=== PATIENT | male | born 1940 | race Caucasian/White ===

== ENCOUNTER → 2018-02-16 07:58 | Outpatient (CLI) | payer MEDICARE, OTHER, SELFPAY ==
--- NOTE | 2018-02-16 15:57 | PFTCOMP_ITS ---
COMPLETE PULMONARY FUNCTION TEST INTERPRETATION Brief HPI: Patient is a 77 year old male, currently under the care of Dr. Caballero, who presents to [facility] for complete pulmonary function tests secondary to diagnosis of COPD. Respiratory therapist reports good effort and reproducible results. Interpretation: Forced expiration spirometry shows a mild large airways obstructive ventilatory defect with an FEV1 of 84% predicted. There is a significant bronchodilator response in FEV1 by strict ATS criteria. Spirograms are of good quality and plateau slowly, indicating slowly emptying areas of the lungs. The respiratory flow volume loop shows decreased expiratory flow rates at all lung volumes consistent with airway obstruction. Lung volumes by body plethysmography show an elevated total lung capacity at 8.38 L, 130% predicted. All other lung volumes are within normal limits. Diffusion capacity by carbon monoxide is elevated at 121% predicted. The airway resistance is normal. Compared to previous pulmonary function tests from 05/14/2016, there has been a significant worsening in air trapping. Impression: Partially reversible mild large airways obstructive ventilatory defect with preserved diffusion capacity.
--- OUTSIDE RECORDS SUMMARY | 2018-03-30 20:28 | XMS RPT_ITS | Clinical Summary ---
:1940 Author Organization Pulmonary Medicine [facility] Address [address] [place] [address] Phone Care Team Providers Name Role Phone Corry Garner LPN Unavailable Unavailable Conditions or Problems Problem Name Problem Code Onset Status Entry Provider Comment Standard Annotate Date Date Description COPD 18533213 Active Jesús Lott Chronic (SNOMED CT) / Brown DO obstructive lung disease Pleuritic 7597467 Active Jesús Lott Pleuritic chest pain (SNOMED CT) / Brown DO pain Pulmonary 660261363 Active Jesús Lott Solitary nodule (SNOMED CT) / Brown DO nodule of lung Medications Medication Instructions Start Stop Generic Name NDC Provider Date Date SPIRIVA inh one cap once TIOTROPIUM [id number] Corry L HANDIHALER 18 daily. Use with 3 BROMIDE [place] MCG CAPS handihaler MONOHYDRATE SPIRIVA inh one cap once / TIOTROPIUM [id number] Marisel A HANDIHALER 18 daily. Use with 3 11 BROMIDE Yensho COUNTRY MANAGER MCG CAPS handihaler MONOHYDRATE SYMBICORT inhale two puffs BUDESONIDE-FORM 07615235664 Corry L 160-4.5 twice daily 3 OTEROL FUMARATE York MCG/ACT AERO MUCINEX 600 MG one tab twice GUAIFENESIN 11141321918 Corry L [id number] daily as needed 3 York for cold/allergy PROAIR HFA 108 inh two puffs ALBUTEROL 47936456312 Corry L (90 Base) every four hours 3 SULFATE [place] MCG/ACT AERS as needed EXCEDRIN EXTRA as needed ASPIRIN-ACETAMI 88856398630 Corry L STRENGTH TABS 3 NOPHEN-CAFFEINE York TABS Medications Administered No information available. Allergies, Adverse Reactions, Alerts Observed no known allergies at Results Date Name Value Unit Range Flag Description Lab Report: CREATININE FINGERSTICK ZZ-GE-unk > 60.0000 mL/min >60 GE use only - for [employer] import when terms are not otherwise specified Office Visit: COPD and pulmonary nodule MEDS REVIEW Done Documentation of current medications (procedure) SMOK STATUS Never smoker Tobacco use [facility] ORALTOBACUSE Never Tobacco smoking status [facility] Plan of Care Type Date Detail Appointment 08:30 AM Jesús Caballero DO, [address], [address], [place], [address] Pending order DMB Pending order Follow Up Appt 1 year Pending order Pulmonary Function Test - complete Pending order DMB Pending order Follow Up Appt [address] Chest with Contrast Pending order DMB Pending order Follow Up Appt [address] Chest without contrast Pending order Pulmonary Function Test - complete Procedures Code Procedure Name Date Entry Date F/U DMB DMB FUA 3 months Follow Up Appt 3 months CPT-28668 CT Chest with Contrast F/U DMB DMB FUA 6 months Follow Up Appt 6 months CPT-50899 CT Chest without contrast PFT Pulmonary Function Test - complete Vital Signs Date Name Value Unit Description BMI (Body Mass Index) 23.34 kg/m2 Body Mass Index [Ratio] Body Temperature 97.2 [degF] temperature E&M BP Diastolic 80 mm[Hg] blood pressure, diastolic - 8462-4 BP Systolic 135 mm[Hg] blood pressure, systolic - 8480-6 Heart Rate 64 /min pulse rate E&M - 8867-4 Height 70.5 [in_us] height E&M - 8302-2 Respiratory Rate 18 /min respiratory rate E&M - 9279-1 Weight Measured 165 [lb_av] weight E&M - 3141-9 Body Temperature 36.6 Jennifer temperature in centigrade E&M BSA (Body Surface Area) 1.97 body surface area Height 179.07 cm height in centimeters E&M Weight Measured 78.18 kg weight in kilograms E&M
--- OUTSIDE RECORDS SUMMARY | 2018-03-30 20:28 | XMS RPT_ITS | Clinical Summary ---
:1940 Author Organization Pulmonary Medicine [facility] Address [address] [place] [address] Phone Care Team Providers Name Role Phone Corry Garner LPN Unavailable Unavailable Conditions or Problems Problem Name Problem Code Onset Status Entry Provider Comment Standard Annotate Date Date Description COPD 28654153 Active Jesús Lott Chronic (SNOMED CT) / Brown DO obstructive lung disease Pleuritic 7229272 Active Jesús Lott Pleuritic chest pain (SNOMED CT) / Brown DO pain Pulmonary 985190635 Active Jesús Lott Solitary nodule (SNOMED CT) / Brown DO nodule of lung Medications Medication Instructions Start Stop Generic Name NDC Provider Date Date SPIRIVA inh one cap once TIOTROPIUM [id number] Corry L HANDIHALER 18 daily. Use with 3 BROMIDE [place] MCG CAPS handihaler MONOHYDRATE SPIRIVA inh one cap once / TIOTROPIUM 65230184492 Marisel A HANDIHALER 18 daily. Use with 3 11 BROMIDE Yensho FOOD OR BAGGAGE HANDLING RAMPMAN MCG CAPS handihaler MONOHYDRATE SYMBICORT inhale two puffs BUDESONIDE-FORM 62342033515 Corry L 160-4.5 twice daily 3 OTEROL FUMARATE [place] MCG/ACT AERO MUCINEX 600 MG one tab twice GUAIFENESIN 30355171727 Corry L [id number] daily as needed 3 [place] for cold/allergy PROAIR HFA 108 inh two puffs ALBUTEROL 21163202193 Corry L (90 Base) every four hours 3 SULFATE [place] MCG/ACT AERS as needed EXCEDRIN EXTRA as needed ASPIRIN-ACETAMI 10768152100 Corry L STRENGTH TABS 3 NOPHEN-CAFFEINE [place] TABS Medications Administered No information available. Allergies, Adverse Reactions, Alerts Observed no known allergies at Results Date Name Value Unit Range Flag Description Office Visit: pulmonary nodule & pleuritic chest pain MEDS REVIEW Done Documentation of current medications (procedure) ORALTOBACUSE Never Tobacco smoking status NHIS SMOK STATUS Never smoker Tobacco use [facility] Plan of Care Type Date Detail Appointment 07:30 AM Jesús Caballero DO, [address], [address], [place], [address] Pending order DMB Pending order Follow Up Appt [address] Chest with Contrast Pending order DMB Pending order Follow Up Appt [address] Chest without contrast Pending order Pulmonary Function Test - complete Procedures No information available. Vital Signs Date Name Value Unit Description BMI (Body Mass Index) 23.20 kg/m2 Body Mass Index [Ratio] Body Temperature 97.5 [degF] temperature E&M BP Diastolic 83 mm[Hg] blood pressure, diastolic - 8462-4 BP Systolic 150 mm[Hg] blood pressure, systolic - 8480-6 Heart Rate 50 /min pulse rate E&M - 8867-4 Height 70.5 [in_us] height E&M - 8302-2 Respiratory Rate 18 /min respiratory rate E&M - 9279-1 Weight Measured 164 [lb_av] weight E&M - 3141-9 Body Temperature 36.6 Jennifer temperature in centigrade E&M BSA (Body Surface Area) 1.97 body surface area Height 179.07 cm height in centimeters E&M Weight Measured 78.18 kg weight in kilograms E&M
--- OUTSIDE RECORDS SUMMARY | 2018-03-30 20:28 | XMS RPT_ITS | Clinical Summary ---
:1940 Author Organization Pulmonary Medicine [facility] Address [address] [place] [address] Phone Care Team Providers Name Role Phone Mariangel Carrera Oren Unavailable Unavailable Conditions or Problems Problem Name Problem Code Onset Status Entry Provider Comment Standard Annotate Date Date Description COPD 14546059 Active Jesús Oren Chronic (SNOMED CT) / Brown DO obstructive lung disease Pleuritic 2081236 Active Jesús Lott Pleuritic chest pain (SNOMED CT) / Brown DO pain Pulmonary 195400263 Active Jesús Oren Solitary nodule (SNOMED CT) / Brown DO nodule of lung Medications Medication Instructions Start Stop Generic Name NDC Provider Date Date SPIRIVA inh one cap once TIOTROPIUM 46319887508 Corry L HANDIHALER 18 daily. Use with 3 BROMIDE [place] MCG CAPS handihaler MONOHYDRATE SPIRIVA inh one cap once / TIOTROPIUM 44479574160 Marisel A HANDIHALER 18 daily. Use with 3 11 BROMIDE Yensho TERRAZZO WORKER HELPER MCG CAPS handihaler MONOHYDRATE SYMBICORT inhale two puffs BUDESONIDE-FORM 75880452109 Corry L 160-4.5 twice daily 3 OTEROL FUMARATE [place] MCG/ACT AERO MUCINEX 600 MG one tab twice GUAIFENESIN 44542194162 Corry L [id number] daily as needed 3 [place] for cold/allergy PROAIR HFA 108 inh two puffs ALBUTEROL 93678761331 Corry L (90 Base) every four hours 3 SULFATE [place] MCG/ACT AERS as needed EXCEDRIN EXTRA as needed ASPIRIN-ACETAMI 45058307942 Corry L STRENGTH TABS 3 NOPHEN-CAFFEINE York [...] (procedure) SMOK STATUS Never smoker Tobacco use [facility] ORALTOBACUSE Never Tobacco smoking status [facility] Plan of Care Type Date Detail Appointment 08:30 AM Jesús Caballero DO, [address], [address], [place], [address] Pending order DMB Pending order Follow Up [...] 3 months Follow Up Appt 3 months CPT-78026 CT Chest with Contrast F/U DMB DMB FUA 6 months Follow Up Appt 6 months CPT-92193 CT Chest without contrast PFT Pulmonary Function [...]
--- OUTSIDE RECORDS SUMMARY | 2018-03-30 20:28 | XMS RPT_ITS | Clinical Summary ---
:1940 Author Organization Pulmonary Medicine [facility] Address [address] [place] [address] Phone Care Team Providers Name Role Phone Corry Garner LPN Unavailable Unavailable Conditions or Problems Problem Name Problem Code Onset Status Entry Provider Comment Standard Annotate Date Date Description COPD 67568304 Active Jesús Lott Chronic (SNOMED CT) / Brown DO obstructive lung disease Pleuritic 6836861 Active Jesús Lott Pleuritic chest pain (SNOMED CT) / Brown DO pain Pulmonary 642414105 Active Jesús Lott Solitary nodule (SNOMED CT) / Brown DO nodule of lung Medications Medication Instructions Start Stop Generic Name NDC Provider Date Date SPIRIVA inh one cap once TIOTROPIUM 24572273508 Corry L HANDIHALER 18 daily. Use with 3 BROMIDE [place] MCG CAPS handihaler MONOHYDRATE SPIRIVA inh one cap once / TIOTROPIUM 41196043928 Marisel A HANDIHALER 18 daily. Use with 3 11 BROMIDE Yensho WILDLIFE ECOLOGIST MCG CAPS handihaler MONOHYDRATE SYMBICORT inhale two puffs BUDESONIDE-FORM 10695122900 Corry L 160-4.5 twice daily 3 OTEROL FUMARATE [place] MCG/ACT AERO MUCINEX 600 MG one tab twice GUAIFENESIN 20870226060 Corry L [id number] daily as needed 3 [place] for cold/allergy PROAIR HFA 108 inh two puffs ALBUTEROL 62229462042 Corry L (90 Base) every four hours 3 SULFATE [place] MCG/ACT AERS as needed EXCEDRIN EXTRA as needed ASPIRIN-ACETAMI 27544680864 Corry L STRENGTH TABS 3 NOPHEN-CAFFEINE [place] TABS Medications Administered No information available. Allergies, Adverse Reactions, Alerts Observed no known allergies at Results Date Name Value Unit Range Flag Description Office Visit: pulmonary nodule & pleuritic chest pain MEDS REVIEW Done Documentation of current medications (procedure) ORALTOBACUSE Never Tobacco smoking status NHIS SMOK STATUS Never smoker Tobacco use [facility] Plan of Care Type Date Detail Appointment 07:30 AM Jesús Caballero DO, [address], [address], [place], [address] Pending order DMB Pending order Follow Up [...]
--- OUTSIDE RECORDS SUMMARY | 2018-03-30 20:28 | XMS RPT_ITS | Clinical Summary ---
:1940 Author Organization Pulmonary Medicine [facility] Address [address] [place] [address] Phone Care Team Providers Name Role Phone Corry Garner LPN Unavailable Unavailable Conditions or Problems Problem Name Problem Code Onset Status Entry Provider Comment Standard Annotate Date Date Description COPD 01679692 Active Jesús Lott Chronic (SNOMED CT) / Brown DO obstructive lung disease Pleuritic 0411216 Active Jesús Lott Pleuritic chest pain (SNOMED CT) / Brown DO pain Pulmonary 810796455 Active Jesús Lott Solitary nodule (SNOMED CT) / Brown DO nodule of lung Medications Medication Instructions Start Stop Generic Name NDC Provider Date Date SPIRIVA inh one cap once TIOTROPIUM 32464895632 Corry L HANDIHALER 18 daily. Use with 3 BROMIDE [place] MCG CAPS handihaler MONOHYDRATE SPIRIVA inh one cap once / TIOTROPIUM 28588634869 Marisel A HANDIHALER 18 daily. Use with 3 11 BROMIDE Yensho FUEL PILOT ENGINEER MCG CAPS handihaler MONOHYDRATE SYMBICORT inhale two puffs BUDESONIDE-FORM 23469905839 Corry L 160-4.5 twice daily 3 OTEROL FUMARATE [place] MCG/ACT AERO MUCINEX 600 MG one tab twice GUAIFENESIN 05549123097 Corry L [id number] daily as needed 3 [place] for cold/allergy PROAIR HFA 108 inh two puffs ALBUTEROL 06231264775 Corry L (90 Base) every four hours 3 SULFATE [place] MCG/ACT AERS as needed EXCEDRIN EXTRA as needed ASPIRIN-ACETAMI 01364112265 Corry L STRENGTH TABS 3 NOPHEN-CAFFEINE York [...] use [facility] ORALTOBACUSE Never Tobacco smoking status [facility] Plan of Care Type Date Detail Pending order DMB Pending order Follow Up [...] 3 months Follow Up Appt 3 months CPT-22259 CT Chest with Contrast F/U DMB DMB FUA 6 months Follow Up Appt 6 months CPT-47250 CT Chest without contrast PFT Pulmonary Function [...]
--- OUTSIDE RECORDS SUMMARY | 2018-03-30 20:29 | XMS RPT_ITS ---
:1940 Author Organization OH[facility] Care Team Providers Name Role Phone LACEY CASANOVA (AMARILIS) Attending Unavailable LACEY CASANOVA (AMARILIS) Referring Unavailable ELZA CARPIO Referring Unavailable ELZA CARPIO Attending Unavailable Gen Tom Attending Unavailable Jesús Caballero D.O. Referring Unavailable Jesús Caballero D.O. Attending Unavailable Naveen Alvarado Primary Care Unavailable Jesús Caballero D.O. Referring Unavailable PROBLEMS PROBLEMS DATE TYPE CONDITION / CODE ATTENDING STATUS SOURCE 03/05/2018 Unknown J44.9 - Chronic Gen Tom Active [facility] obstructive [facility] disease, Repository unspecified / J44.9(ICD-10) 12/08/2016 Active Aneurysm of iliac NA Active [facility] artery / [facility] I72.3(ICD-10) Repository 09/09/2017 Active Frequency of NA Active [facility] micturition / [facility] [place] R35.0(ICD-10) Repository 09/09/2017 Active Encounter for NA Active [facility] screening for [facility] malignant Repository neoplasm of prostate / Z12.5(ICD-10) 09/09/2017 Active Encounter for NA Active [facility] screening for [facility] lipoid disorders Repository / Z13.220(ICD-10) 09/09/2017 Active Encounter for NA Active [facility] screening for [facility] diabetes mellitus Repository / Z13.1(ICD-10) PROCEDURES PROCEDURES No Procedure Records FoundRESULTS RESULTS PULMONARY FUNCTION Observed: 02/17/2018 Status: F Source: [facility] REPORT COMP 5:47 AM [facility] REPOSITORY [facility] Pulmonary Services/Neurology [address] [place] [address] MR#: [id number] Acct: [id number] Name: LUIS RACHEL Rep #: [id number] : 1940 77 From: Gen Tom MD Referring Dr: Jesús Caballero D.O. Status: REG CLI Ordering Dr: Date: Location: [facility] Sex: M C COMPLETE PULMONARY FUNCTION TEST INTERPRETATION Brief HPI: Patient is a 77 year old male, currently under the care of Dr. Caballero, who presents to [facility] for complete pulmonary function tests secondary to diagnosis of COPD. Respiratory therapist reports good effort and reproducible results. Interpretation: Forced expiration spirometry shows a mild large airways obstructive ventilatory defect with an FEV1 of 84% predicted. There is a significant bronchodilator response in FEV1 by strict ATS criteria. Spirograms are of good quality and plateau slowly, indicating slowly emptying areas of the lungs. The respiratory flow volume loop shows decreased expiratory flow rates at all lung volumes consistent with airway obstruction. Lung volumes by body plethysmography show an elevated total lung capacity at 8.38 L, 130% predicted. All other lung volumes are within normal limits. Diffusion capacity by carbon monoxide is elevated at 121% predicted. The airway resistance is normal. Compared to previous pulmonary function tests from 05/14/2016, there has been a significant worsening in air trapping. Impression: Partially reversible mild large airways obstructive ventilatory defect with preserved diffusion capacity. 02/17/18 0547 <Electronically signed by Gen Tom MD> Date Gen Tom MD CC: Gen Tom MD; Jesús Caballero D.O.; Naveen Alvarado MD Date Dictated: 02/16/18 1555 Date Transcribed: 02/16/18 1555 [employer]: KEILY Signed PROGRESS Observed: 12/07/2017 Status: COMPLETED Source: [place] 11:52 AM [facility] REPOSITORY HNO ID: [id number] Author: Elza Carpio Service: (none) Author Type: Physician Type: Progress Notes Filed: 12/07/2017 11:52 AM Note Text: This office note has been dictated. Elza Carpio DO CNOV Observed: 12/07/2017 Status: COMPLETED Source: [place] 11:15 AM [facility] REPOSITORY Office Visit (VASSWS) LUIS RACHEL ([id number]) 1940 M NFR Date Time Provider Department 12/07/17 11:15 AM ELZA CARPIO VASSWS During your visit today, we recorded the following information about you: Elza Carpio DO 12/07/2017 11:52 AM Signed This office note has been dictated. 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 Rachel is here to follow up on common iliac artery aneurysm, ectatic blood vessels. Denies any complaints. Still having left groin, slight lateral pelvic pain at the ASIS. He says he feels a tightening and sometimes a burning pain when he sits. He has a history of a hernia repair years before. 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 Objective: His vital signs are stable. He is in no distress. He has palpable nontender aorta. His aortic duplex demonstrates he has a right common iliac artery ectasia at 1.7, left common iliac artery at 2.1 cm. This is stable from a CT scan prior. Assessment/Plan: Common iliac artery aneurysm and ectasia. We will get a repeat duplex in six months. If that remains stable, we will go to yearly duplexes. He is agreeable to this plan. If he continues to have significant groin pain, especially at that location, he may benefit from evaluation by General Surgery to assess his hernia repair. He will follow up with me in six months. Elza Carpio D.O. KB/089 Audio #: [id number] Date Dictated: 12/07/2017 11:05:20 Date Typed: 12/13/2017 09:43:23 Date Revised: COMP METABOLIC PANEL Collected: 09/09/2017 Status: F Source: [place] 8:10 AM [facility] REPOSITORY TYPE CODE TESTS RESULT OUT OF REFERENCE UNITS RANGE LAB TP 6.3-8.0 g/dL Protein, Total 6.6 LAB ALB 3.9-4.9 g/dL Albumin 4.2 LAB CA 8.5-10.2 mg/dL Calcium, Total 9.1 LAB TBIL 0.2-1.3 mg/dL Bilirubin, Total 0.9 LAB ALKP 36-108 U/L Alkaline Phosphatase 62 LAB AST 14-40 U/L AST 28 LAB GLU 74-99 mg/dL Glucose 91 Result Comment: The [place] Diabetes Association (ADA) provides guidance for cutoff values for fasting glucose and random glucose. The ADA defines fasting as no caloric intake for at least 8 hours. Fas ting plasma glucose results between 100 to 125 mg/dL indicate increased risk for diabetes (prediabetes). Fasting plasma glucose results greater than or equal to 126 mg/dL meet the criteria for diagnosis of diabetes. In the absence of unequivocal hyperglycemia, results should be confirmed by repeat testing. In a patient with classic symptoms of hyperglycemia or hyperglycemic crisis, random plasma glucose results greater than or equal to 200 mg/dL meet the criteria for diagnosis of diabetes. Reference: Standards of Medical Care in Diabetes 2016, [place] [employer] Association. Diabetes Care. 2016.39(Suppl 1). LAB BUN 9-24 mg/dL BUN 23 LAB CRET 0.73-1.22 mg/dL Creatinine 0.83 LAB NA 136-144 mmol/L Sodium 142 LAB K 3.7-5.1 mmol/L Potassium 4.2 LAB CL 97-105 mmol/L Chloride 105 LAB CO2 22-30 mmol/L CO2 28 LAB AGAP 9-18 mmol/L Anion Gap 9 LAB ALT 10-54 U/L ALT 20 LAB GFRAA eGFR- Amer. >60 LAB GFRNAA . eGFR-All Other Races >60 Result Comment: eGFR (Estimated GFR) Units of measure: mL/min/1.73 meters squared eGFR is derived from the reexpressed MDRD Study equation using the following parameters: serum creatinine, age, gender and race. The creatinine assay has been calibrated to be traceable to IDMS. An eGFR <60 mL/min/1.73m2 for >3 months is consistent with chronic kidney disease. Refer to KDOQI guidelines for clinical interpretation. In patients with unstable renal function, e.g. those with acute kidney injury, the eGFR may not accurately reflect actual GFR. Performed By: #### CMP, LIPB, PSA #### [facility] [address] [place], [place] [address] LIPID PANEL, BASIC Collected: 09/09/2017 Status: F Source: [place] 8:10 AM [facility] REPOSITORY TYPE CODE TESTS RESULT OUT OF REFERENCE UNITS RANGE LAB CHOL <200 mg/dL Cholesterol 157 Result Comment: <200 mg/dL, Desirable 200-239 mg/dL, Borderline high >239 mg/dL, High LAB TRIGLY <150 mg/dL Triglyceride 52 Result Comment: <150 mg/dL, Normal 150-199 mg/dL, Borderline high 200-499 mg/dL, High >499 mg/dL, Very high LAB HDL >39 mg/dL HDL-Cholesterol 71 Result Comment: 40-59 mg/dL, Acceptable >59 mg/dL, High: Negative risk factor for coronary heart disease <40 mg/dL, Low: Positive risk factor for coronary heart disease LAB LDL <100 mg/dL LDL-Cholesterol 76 Result Comment: <100 mg/dL, Optimal 100-129 mg/dL, Near optimal/above optimal 130-159 mg/dL, Borderline high 160-189 mg/dL, High >189 mg/dL, Very high Secondary prevention optimal LDL Cholesterol levels are recommended to be < 70 mg/dL LAB NONHDL <130 mg/dL Non HDL Cholesterol 86 Result Comment: <130 mg/dL, Optimal 130-159 mg/dL, Near optimal/above optimal 160-189 mg/dL, Borderline high 190-219 mg/dL, High >219 mg/dL, Very high Secondary prevention optimal non HDL Cholesterol levels are recommended to be < 100 mg/dL LAB FT hrs Fasting Time 8 LAB VLDL <30 mg/dL VLDL Cholesterol 10 LAB TCHDL <5.10 TC:HDL Ratio 2.21 LAB LDLHDL <2.54 LDL:HDL Ratio 1.07 Result Comment: Reference: 1. National Cholesterol Education Program ATP III Guideline At-A-Glance Quick Desk Reference: National Heart, Lung, and Blood Allen. National Institutes of Health. 2001: NIH Publication No. 01-3305. 2. An International Atherosclerosis Society position paper: global recommendations for the management of dyslipidemia: executive summary, Atherosclerosis. 2014: 232(2):410-413. Performed By: #### CMP, LIPB, PSA #### [facility] [employer] [address] [place], [place] [address] PSA, DIAGNOSTIC Collected: 09/09/2017 Status: F Source: [place] 8:10 AM [facility] REPOSITORY TYPE CODE TESTS RESULT OUT OF REFERENCE UNITS RANGE LAB PSA 0.00-2.59 ng/mL PSA, Diagnostic 1.79 Result Comment: Total PSA test methodology used is the Electrochemiluminescence Immunoassay. Performed By: #### CMP, LIPB, PSA #### [facility] [employer] [address] [place], [place] [address] PROGRESS Observed: 09/03/2017 Status: COMPLETED Source: [place] 11:13 AM [facility] REPOSITORY HNO ID: [id number] Author: Lacey Casanova Service: (none) Author Type: Nurse Practitioner Type: Progress Notes Filed: 09/03/2017 12:46 PM Note Text: This is a 76 year old male who presents today with: Patient presents with: Blood Pressure HISTORY OF PRESENT ILLNESS: Luis Rachel is a 76 year old male. Patient presents with: Blood Pressure Pt presents today for blood pressure problem. Refers that yesterday 158/83 at the foot/ankle doctor yesterday. Recheck BP: Right - 130/82 Left - 122/84 REVIEW OF SYSTEMS GENERAL: No weight loss, malaise or fevers/chills HEENT: Negative for frequent or significant headaches, No changes in hearing or vision. NECK: Negative for lumps, goiter, pain and significant neck swelling RESPIRATORY: Negative for cough, hemoptysis, wheezing, dyspnea. Gets increased SOB with the increased humidity or if doing something pretty strenuous. Hasn't used inhaler since its been cold. CARDIOVASCULAR: Negative for chest pain, leg swelling, orthopnea, or palpitations GI: No nausea, vomiting, or diarrhea/constipation. No hematochezia/melena. No heartburn or reflux symptoms. Up to date with colonoscopy. : No history of dysuria, frequency or incontinence. No nocturia. MUSCULOSKELETAL: Negative for joint pain or swelling. SKIN: Negative for lesions, rash, and itching ENDOCRINE: Negative for heat intolerance, polyuria, polydipsia and goiter. Increased urination during the day. Doesn't like the cold. NEURO: No history syncope, paralysis, seizures or tremors. Occ headaches that usually are secondary to neck pain (pillow position, sitting in recliner). PAST MEDICAL HISTORY: PAST MEDICAL HISTORY Diagnosis Date - Anal or rectal pain - Asthma - Diverticulosis of small intestine (without mention of hemorrhage) - External hemorrhoids without mention of complication - Generalized osteoarthrosis, unspecified site lumbar spine - Internal hemorrhoids without mention of complication PAST SURGICAL HISTORY Procedure Laterality Date - COLONOSCOP W/ OR W/O [facility] SPEC 11/02/2014 Colonoscopy - COLONOSCOPY - DIAGNOSTIC 07/19/04 - [facility] REVISION, ONE TOE Bilateral feet - REPAIR INGUINAL HERNIA 04/30/2010 bilateral ALLERGIES Patient has no known allergies. MEDICATIONS Current Outpatient Prescriptions: SYMBICORT 160-4.5 mcg/actuation inhaler Inhale 2 Puffs as instructed twice daily. No current facility-administered medications for this visit. FAMILY HISTORY Problem Relation Age of Onset - Cancer Mother - CVA [Other] [OTHER] Mother - Heart Father Social History Marital status: Spouse name: Years of education: Number of children: Social History Main Topics Smoking status: Never Smoker Smokeless tobacco: Never Used Alcohol use: Yes Comment: social drinker Drug use: No EXAM: BP 140/80 (BP Site: Right Arm, BP Position: Sitting, BP Cuff Size: Regular Adult) Pulse 62 Resp 12 Ht 177.8 cm (5' 10) Wt 77.1 kg (170 lb) BMI 24.39 kg/m? PHYSICAL EXAM: General Appearance: Well appearing, alert, in no acute distress, well-hydrated, well nourished.. Skin: Skin color, texture, turgor normal, no suspicious rashes or lesions. Head: Normocephalic, no masses, lesions, tenderness or abnormalities. Eyes: Anicteric sclera. Pupils are equally round and reactive to light. Extraocular movements are intact. . Ears: External ears normal, canals clear. Normal TMs bilaterally. Oropharynx: Lips, mucosa, and tongue normal, teeth and gums normal, oropharynx normal. Neck: Supple, no adenopathy; thyroid symmetric, normal size, no bruits. Lungs: Lungs clear to auscultation. No wheezing, rhonchi, rales. Heart: RRR without murmur, gallop, or rubs. No ectopy, Positive findings: murmur: 1/6 at apex. Abdomen: Abdomen soft, non-tender. Bowel sounds normal. No masses, organomegaly, Negative findings: no bruits heard and aorta normal. Extremities: No deformities, edema, skin discoloration, clubbing or cyanosis. Good capillary refill. . Peripheral Pulses: Normal. Neurologic: Gait normal. ASSESSMENT/PLAN: 1. Elevated blood pressure reading without diagnosis of hypertension - ICD9: 796.2, ICD10: R03.0 (primary diagnosis) BP after sitting normalized. Will return in a week or so for fasting labs and nurse BP check. Discussed watching sodium and hidden salts. - Encouraged dietary sodium restriction/DASH diet - Recommend home blood pressure monitoring, to bring results in on next visit. 2. Chronic obstructive pulmonary disease, unspecified COPD type (HCC) - ICD9: 496, ICD10: J44.9 Stable. Hasn't needed inhaler since cold weather. 3. 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 4. Frequency of micturtion - ICD9: 788.41, ICD10: R35.0 chronic - PSA/PROSTSPECAG DIAG 5. Screening for cholesterol level - ICD9: V77.91, ICD10: Z13.220 - LIPID PANEL BASIC 6. Screening for prostate cancer - ICD9: V76.44, ICD10: Z12.5 - PSA/PROSTSPECAG DIAG 7. Screening for diabetes mellitus - ICD9: V77.1, ICD10: Z13.1 - COMP METABOLIC PANEL Discussed treatment plan and patient voices understanding. Patient's questions answered appropriately. Medications and potential side effects were discussed and patient voices understanding. Return to the office as scheduled or as needed for worsening/no improvement. Lacey Casanova APRN.CNP CNOV Observed: 09/03/2017 Status: COMPLETED Source: [place] 10:40 AM [facility] REPOSITORY Office Visit (FAMPWS) LUIS RACHEL ([id number]) 1940 M NFR Date Time Provider Department 09/03/17 10:40 AM LACEY CASANOVA (AMARILIS) FAMPWS During your visit today, we recorded the following information about you: Pulse Respiration Blood pressure Weight 62/minute 12/minute 140/80 77.1 kg Height 1.778 m Lacey Casanova APRN.CNP 09/03/2017 12:46 PM Signed This is a 76 year old male who presents today with: Patient presents with: Blood Pressure HISTORY OF PRESENT ILLNESS: Luis A Kovalik is a 76 year old male. Patient presents with: Blood Pressure Pt presents today for blood pressure problem. Refers that yesterday 158/83 at the foot/ankle doctor yesterday. Recheck BP: Right - 130/82 Left - 122/84 REVIEW OF SYSTEMS GENERAL: No weight loss, malaise or fevers/chills HEENT: Negative for frequent or significant headaches, No changes in hearing or vision. NECK: Negative for lumps, goiter, pain and significant neck swelling RESPIRATORY: Negative for cough, hemoptysis, wheezing, dyspnea. Gets increased SOB with the increased humidity or if doing something pretty strenuous. Hasn't used inhaler since its been cold. CARDIOVASCULAR: Negative for chest pain, leg swelling, orthopnea, or palpitations GI: No nausea, vomiting, or diarrhea/constipation. No hematochezia/melena. No heartburn or reflux symptoms. Up to date with colonoscopy. : No history of dysuria, frequency or incontinence. No nocturia. MUSCULOSKELETAL: Negative for joint pain or swelling. SKIN: Negative for lesions, rash, and itching ENDOCRINE: Negative for heat intolerance, polyuria, polydipsia and goiter. Increased urination during the day. Doesn't like the cold. NEURO: No history syncope, paralysis, seizures or tremors. Occ headaches that usually are secondary to neck pain (pillow position, sitting in recliner). PAST MEDICAL HISTORY: PAST MEDICAL HISTORY Diagnosis Date - Anal or rectal pain - Asthma - Diverticulosis of small intestine (without mention of hemorrhage) - External hemorrhoids without mention of complication - Generalized osteoarthrosis, unspecified site lumbar spine - Internal hemorrhoids without mention of complication PAST SURGICAL HISTORY Procedure Laterality Date - COLONOSCOP W/ OR W/O [facility] SPEC 11/02/2014 Colonoscopy - COLONOSCOPY - DIAGNOSTIC 07/19/04 - [place] REVISION, ONE TOE Bilateral feet - REPAIR INGUINAL HERNIA 04/30/2010 bilateral ALLERGIES Patient has no known allergies. MEDICATIONS Current Outpatient Prescriptions: SYMBICORT 160-4.5 mcg/actuation inhaler Inhale 2 Puffs as instructed twice daily. No current facility-administered medications for this visit. FAMILY HISTORY Problem Relation Age of Onset - Cancer Mother - CVA [Other] [OTHER] Mother - Heart Father Social History Marital status: Spouse name: Years of education: Number of children: Social History Main Topics Smoking status: Never Smoker Smokeless tobacco: Never Used Alcohol use: Yes Comment: social drinker Drug use: No EXAM: BP 140/80 (BP Site: Right Arm, BP Position: Sitting, BP Cuff Size: Regular Adult) Pulse 62 Resp 12 Ht 177.8 cm (5' 10) Wt 77.1 kg (170 lb) BMI 24.39 kg/m? PHYSICAL EXAM: General Appearance: Well appearing, alert, in no acute distress, well-hydrated, well nourished.. Skin: Skin color, texture, turgor normal, no suspicious rashes or lesions. Head: Normocephalic, no masses, lesions, tenderness or abnormalities. Eyes: Anicteric sclera. Pupils are equally round and reactive to light. Extraocular movements are intact. . Ears: External ears normal, canals clear. Normal TMs bilaterally. Oropharynx: Lips, mucosa, and tongue normal, teeth and gums normal, oropharynx normal. Neck: Supple, no adenopathy; thyroid symmetric, normal size, no bruits. Lungs: Lungs clear to auscultation. No wheezing, rhonchi, rales. Heart: RRR without murmur, gallop, or rubs. No ectopy, Positive findings: murmur: 1/6 at apex. Abdomen: Abdomen soft, non-tender. Bowel sounds normal. No masses, organomegaly, Negative findings: no bruits heard and aorta normal. Extremities: No deformities, edema, skin discoloration, clubbing or cyanosis. Good capillary refill. . Peripheral Pulses: Normal. Neurologic: Gait normal. ASSESSMENT/PLAN: 1. Elevated blood pressure reading without diagnosis of hypertension - ICD9: 796.2, ICD10: R03.0 (primary diagnosis) BP after sitting normalized. Will return in a week or so for fasting labs and nurse BP check. Discussed watching sodium and hidden salts. - Encouraged dietary sodium restriction/DASH diet - Recommend home blood pressure monitoring, to bring results in on next visit. 2. Chronic obstructive pulmonary disease, unspecified COPD type (HCC) - ICD9: 496, ICD10: J44.9 Stable. Hasn't needed inhaler since cold weather. 3. 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 4. Frequency of micturtion - ICD9: 788.41, ICD10: R35.0 chronic - PSA/PROSTSPECAG DIAG 5. Screening for cholesterol level - ICD9: V77.91, ICD10: Z13.220 - LIPID PANEL BASIC 6. Screening for prostate cancer - ICD9: V76.44, ICD10: Z12.5 - PSA/PROSTSPECAG DIAG 7. Screening for diabetes mellitus - ICD9: V77.1, ICD10: Z13.1 - COMP METABOLIC PANEL Discussed treatment plan and patient voices understanding. Patient's questions answered appropriately. Medications and potential side effects were discussed and patient voices understanding. Return to the office as scheduled or as needed for worsening/no improvement. PANCHO Ledesma APRN.CNP 09/03/2017 11:48 AM Signed 1. Continue to monitor blood pressure. 2. Get fasting labs. 3. Return on an open access day for BP check in 1-2 weeks. 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] Frequency of micturition [R35.0] Screening for cholesterol level [Z13.220] Screening for prostate cancer [Z12.5] Screening for diabetes mellitus [Z13.1] Order(s):PSA/PROSTSPECAG DIAG [SQPSA] Order #: [id number] FUTURE LIPID PANEL BASIC [SQLIPB] Order #: [id number] FUTURE COMP METABOLIC PANEL [SQCMP] Order #: [id number] FUTURE Prescriptions as of 09/03/2017 Sig: SYMBICORT 160 MCG-4.5 MCG/ACT* Inhale 2 Puffs as instructed * Problem List As Of Date 09/03/2017 Noted Resolved Diverticulosis of small intestine (without ment* 12/08/2016 External hemorrhoids without mention of complic* 12/08/2016 Internal hemorrhoids without mention of complic* 12/08/2016 Anal or rectal pain [K62.89] 12/08/2016 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 Continue to monitor blood pressure. 2. Get fasting labs. 3. Return on an open access day for BP check in 1-2 weeks. Encounter Status:Closed by LACEY CASANOVA CNP on 09/03/17 ALLERGIES ALLERGIES DATE TYPE / CODE NAME / CODE REACTION SEVERITY SOURCE Drug NO KNOWN [facility] Class/17886 ALLERGIES [facility] 1003(SNOMED Repository CT) ENCOUNTERS ENCOUNTERS ADMIT/DISCHARGE ACCOUNT ADMITTING ENCOUNTER LOCATION SOURCE NUMBER CLASS 02/16/2018 [id number] [facility]ository 02/16/2018 [id number] [facility] ing:PSN Repository 12/07/2017/12/24/19 [id number] Ambulatory [address] Repository 11/20/2017/11/21/19 [id number] Ambulatory [address] Repository 09/09/2017/09/10/19 [id number] Ambulatory [address] Repository 09/03/2017/09/05/19 [id number] Ambulatory [address] Repository PAYERS PAYERS ENCOUNTER GUARANTOR PAYER SUBSCRIBER SOURCE 02/16/2018 LUIS Jones Primary LUIS Valenzuela [id number] Insurance:MEDICARE MIAH: [facility] PART A [facility] [id number] Number: Repository [id number]: [phone] [id number] [phone] () Date:2018-02-01 02/16/2018 Secondary LUIS Valenzuela Insurance:[facility] CARLOZB: [facility] Number: [id number] [facility] [id number] Repository Date:[id number] [facility] [id number], [place] [address]YD: 02/16/2018 Tertiary NOT GIVENYECENIA Valenzuela Insurance:SELF PAY [facility] Number: Effective Repository Date:2018-02-16 02/16/2018 LUIS A Primary LUIS Valenzuela [id number] Insurance:MEDICARE MIAH: [facility] PART A [facility] [id number] Number: Repository [id number]: [phone] [id number] [phone] () Date:2018-02-01 02/16/2018 Secondary LUIS Valenzuela Insurance:[facility] MIAH: [facility] Number: [id number] Hospital [id number] Repository Date:1419-01-65YD [id number], [place] [address]DY: 02/16/2018 Tertiary NOT HAYDER Valenzuela Insurance:SELF PAY [facility] Number: Effective Repository Date:2018-02-01
== END ==
PROVIDERS: Family Provider Family Medicine; PCP Family Medicine; Referring Provider Internal Medicine Critical Care Medicine; Visit Provider Internal Medicine Critical Care Medicine
DX: J44.9 Chronic obstructive pulmonary disease, unspecified (principal); R91.1 Solitary pulmonary nodule
CPT/HCPCS: 94060; 94726; 94729

== ENCOUNTER → 2020-08-27 07:56 | Outpatient (CLI) | payer MEDICARE, OTHER, SELFPAY ==
[2020-08-13 12:38] VITALS: BMI 23.9
--- NOTE | 2020-08-27 08:08 | ECHOD_ITS ---
Reason For Study: Dyspnea/SOB Procedure This was a 2D Doppler, Color Flow transthoracic echocardiogram. The exam was of adequate technical quality. Exam performed in department. Left Ventricle Normal LV size. Moderate concentric left ventricular hypertrophy. Left ventricular systolic function is normal. The estimated ejection fraction is 60 %. No evidence for diastolic dysfunction. No regional wall motion abnormalities noted. Right Ventricle Normal RV size. Normal systolic function. Atria Normal left atrium. Normal right atrium. No doppler evidence for ASD. Mitral Valve There is no mitral annular calcification. Mild mitral valve prolapse, posterior leaflet. Mild (1+) mitral valve insufficiency. Tricuspid Valve Normal tricuspid valve. Mild to moderate (1-2+) tricuspid valve insufficiency. Right ventricular systolic pressure estimated to be 28 mmHg. Aortic Valve Trisinus/trileaflet aortic valve. Normal aortic valve. Trivial aortic valve insufficiency. Pulmonic Valve The pulmonic valve is not well visualized. Trivial pulmonic valve insufficiency. Great Vessels Borderline enlarged aortic root. Pericardium/Pleural Trivial pericardial effusion. There are no echocardiographic indications of cardiac tamponade. MMode/2D Measurements & Calculations LVIDd: 4.6 cm IVSd: 1.5 cm Ao root diam: 3.9 cm LVIDs: 3.0 cm LVPWd: 1.4 cm LA dimension: 3.6 cm RVDd: 4.1 cm FS: 34.6 % LAV(MOD-sp4): 24.5 ml LA A4 area: 12.6 cm2 RA A4 area: 11.0 cm2 Time Measurements MV dec time: 0.37 sec Doppler Measurements & Calculations MV E max grant: 59.6 cm/sec Lat Peak E' Grant: 5.1 cm/sec Med Peak E' Grant: 5.8 cm/sec MV A max grant: 74.4 cm/sec E/E' lat: 11.7 E/E' med: 10.3 MV E/A: 0.80 MV V2 max: 90.6 cm/sec MV P1/2t max grant: 72.5 cm/sec Ao V2 max: 99.0 cm/sec MV max P.3 mmHg MV P1/2t: 130.6 msec Ao max P.9 mmHg MV V2 mean: 46.0 cm/sec MV dec slope: 162.5 cm/sec2 MV mean P.99 mmHg MVA(P1/2t): 1.7 cm2 MV V2 VTI: 31.8 cm LV V1 max: 64.9 cm/sec PA V2 max: 97.3 cm/sec TR max grant: 248.4 cm/sec LV V1 max P.7 mmHg TR max P.7 mmHg ECHO/Echo Complete Interpretation Summary Left ventricular systolic function is normal. The estimated ejection fraction is 60 %. Moderate concentric left ventricular hypertrophy. Mild mitral valve prolapse, posterior leaflet Mild (1+) mitral valve insufficiency. Mild to moderate (1-2+) tricuspid valve insufficiency. Trivial aortic valve insufficiency. Trivial pulmonic valve insufficiency. Trivial pericardial effusion. There are no echocardiographic indications of cardiac tamponade. No evidence for diastolic dysfunction. Ordering Physician: Jesús Caballero Referring Physician: Naveen Alvarado Performed By: Avinash Morales RCS
--- NOTE | 2020-08-27 14:25 | PFTCOMP_ITS ---
COMPLETE PULMONARY FUNCTION TEST INTERPRETATION Brief HPI: Patient is a 79 year old female, currently under the care of Dr. Caballero, who presents to [facility] for complete pulmonary function tests secondary to diagnosis of COPD. Respiratory therapist reports good effort and reproducible results. Interpretation: Forced expiration spirometry shows a mild large airways obstructive ventilatory defect with an FEV1 of 81% predicted. There is a significant bronchodilator response in FEV1 by strict ATS criteria. Spirograms are of good quality and plateau slowly, indicating slowly emptying areas of the lungs. The respiratory flow volume loop shows decreased expiratory flow rates at all lung volumes consistent with airway obstruction. Lung volumes by body plethysmography show a normal total lung capacity at 6.56 L, 102% predicted. All other lung volumes are within normal limits. Diffusion capacity by carbon monoxide is normal at 109% predicted. The airway resistance is slightly elevated. Compared to previous pulmonary function tests from 02/16/2018, there has been significant improvement in air trapping with hyperinflation. Impression: Partially reversible mild large airways obstructive ventilatory defect with preserved lung volumes and diffusion capacity
== END ==
PROVIDERS: PCP Family Medicine; Referring Provider Internal Medicine Critical Care Medicine; Visit Provider Internal Medicine Critical Care Medicine
DX: J44.9 Chronic obstructive pulmonary disease, unspecified (principal); R06.02 Shortness of breath; R06.00 Dyspnea, unspecified
CPT/HCPCS: 93306; 94060; 94726; 94729

== ENCOUNTER → 2020-08-30 12:38 | Outpatient (CLI) | payer MEDICARE, OTHER, SELFPAY ==
[2020-08-13 12:38] VITALS: BMI 23.9
[2020-08-30 13:00] VITALS: PULSE 56; PULSE 58; PULSE 82; PULSE 85; PULSE 86; PULSE 87; O2SAT 96; O2SAT 97; O2SAT 98
--- NOTE | 2020-08-30 14:17 | PCM.PSN.6M ---
PSN 6 Minute Walk Test 6 Minute Walk Test 6 Minute Walk Test: 6 Minute Walk Test PSN:6-Minute Walk Test Start: 08/30/20 13:14 Freq: Status: Active Protocol: RESP.6MINW Document 08/30/20 13:00 [facility] (Rec: 08/30/20 13:18 [facility] [id number]) 6 Minute Walk Test Date Performed 08/30/20 Time Performed 13:00 Height 5 ft 10 in Weight: 70.76 kg Weight in Pounds 156.[address]: Dr Caballero Assistive device used: None Pre-test Oxygen Delivery Method Room Air Pulse Ox (%) 97 Pulse Rate (60-100 beats/min) 56 L Dyspnea Zulma Scale (0-10) 0 Exertion Zulma Scale (6-20) 6 1st minute Oxygen Delivery Method Room Air Pulse Ox (%) 98 Pulse Rate (60-100 beats/min) 82 2nd minute Oxygen Delivery Method Room Air Pulse Ox (%) 97 Pulse Rate (60-100 beats/min) 86 3rd minute Oxygen Delivery Method Room Air Pulse Ox (%) 96 Pulse Rate (60-100 beats/min) 87 4th minute Oxygen Delivery Method Room Air Pulse Ox (%) 97 Pulse Rate (60-100 beats/min) 87 5th minute Oxygen Delivery Method Room Air Pulse Ox (%) 98 Pulse Rate (60-100 beats/min) 87 6th minute Oxygen Delivery Method Room Air Pulse Ox (%) 96 Pulse Rate (60-100 beats/min) 85 Dyspnea Zulma Scale (0-10) 0.5 Exertion Zulma Scale (6-20) 11 Post-test Oxygen Delivery Method Room Air Pulse Ox (%) 98 Pulse Rate (60-100 beats/min) 58 L Full Laps Walked 18 Partial Lap, Number of Tiles Walked 39 Total Distance Walked (ft) 1101 Interpretation Interpretation: The patient was able to ambulate 1101 feet over the course of 6 minutes on room air with no assistive devices or breaks. The patient experienced no significant desaturation or tachycardia during testing. These findings are consistent with a normal walking oximetry. Recommendations Recommendations: No supplemental oxygen is indicated at this time.
== END ==
PROVIDERS: PCP Family Medicine; Referring Provider Internal Medicine Critical Care Medicine; Visit Provider Internal Medicine Critical Care Medicine
DX: J44.9 Chronic obstructive pulmonary disease, unspecified (principal)
CPT/HCPCS: 94618

== ENCOUNTER → 2021-10-15 | Outpatient (CLI) | payer MEDICARE, OTHER, SELFPAY ==
--- NOTE | 2021-10-15 07:49 | MRI_ITS ---
STUDY: MRI LUMBAR SPINE WITHOUT CONTRAST REASON FOR EXAM: Male, 81 years old. Lower back pain. Left hip pain. TECHNIQUE: Standardized fat and water weighted pulse sequences were obtained in the sagittal and axial planes. COMPARISON: None FINDINGS: T12-L1: Normal endplates. Normal disc height, hydration and morphology. Normal bilateral facet joints. Normal central canal and bilateral lateral recesses. Normal bilateral intervertebral neural foramina. Normal lumbar lordosis. There is moderate dextroscoliosis with apex at L3. Normal conus medullaris that terminates at the L1 L1-2: There is severe degenerative disc disease with disc space narrowing and endplate spondylosis. There is broad-based disc herniation with moderate bilateral foraminal stenosis. There is left facet arthrosis. There is no significant spinal canal stenosis. L2-3: There is severe degenerative disc disease with disc space narrowing and endplate spondylosis. There is mild broad-based disc herniation with moderate bilateral foraminal stenosis. There is mild ligamentous hypertrophy and left facet arthrosis. L3-4: There is severe degenerative disc disease with disc space narrowing and endplate spondylosis. There is disc bulging and mild bilateral foraminal stenosis. There is left facet arthrosis. L4-5: There is severe degenerative disc disease is disc space narrowing and endplate spondylosis. There is mild broad-based disc herniation with mild left and moderate right foraminal stenosis. There is no significant spinal canal stenosis. L5-S1: There is broad-based disc herniation with severe bilateral foraminal stenosis. There is no significant spinal canal stenosis. Normal visualized sacral ala. Normal visualized paraspinous soft tissue structures. MRI/Spine Lumbar (Routine) IMPRESSION: Dextroscoliosis. Severe degenerative changes. Multilevel disc bulging and disc herniation with foraminal stenosis as described, most severe at L5-S1. Electronically Signed: Sergei Linares MD at 10:01 EDT Reading Location ID and State: [address] [place] [address] Tel , Service support ,
--- NOTE | 2021-10-15 08:30 | RAD_ITS ---
STUDY: X-RAY - ORBITS REASON FOR EXAM: Male, 81 years old. PRE MRI CLEARANCE, HX OF METAL TO EYE TECHNIQUE: 2 view(s) of the orbits were obtained. COMPARISON: None. FINDINGS: Normal bilateral orbits without a metallic orbital foreign body. Normal visualized facial bones. Normal paranasal sinuses. The soft tissue structures are unremarkable. RAD/Orbits for Foreign Body IMPRESSION: No demonstrated metallic orbital foreign body. The patient is cleared for an MRI examination. Electronically Signed: Amauri Fernandes MD at 11:19 EDT ,
== END | disposition home or self-care (01) ==
LOC: MRI 07:49
PROVIDERS: PCP Family Medicine; Referring Provider Orthopaedic Surgery; Visit Provider Orthopaedic Surgery
DX: M51.26 Other intervertebral disc displacement, lumbar region (principal); R27.0 Ataxia, unspecified
CPT/HCPCS: 70030; 72148

== ENCOUNTER → 2021-12-19 | Outpatient (CLI) | payer MEDICARE, OTHER, SELFPAY ==
--- NOTE | 2021-12-19 12:40 | STE_ITS ---
Reason For Study: NEAR SYNCOPE Stress Results Protocol: Gen Protocol Maximum Predicted HR: 141 bpm Target HR: 120 bpm % Maximum Predicted HR: 82 % DurationHeart Rate Stage (mm:ss) (bpm) BP Comment BASELINE 58 140/82 STAGE 1 4:54 116 144/82FATIGUE, INCREASED SOB, INCREASED ECTOPY RECOVERY 74 140/82 Stress Duration: 4:54 mm:ss Maximum Stress HR: 116 bpm Baseline Echocardiogram Findings The estimated ejection fraction is 55-60 %. post stress EF is 65%. Trivial pericardial effusion. Stress Echo Wall motion Data Resting WM Intermediate WM Stress WM Resting Wall Motion Wall Motion Stress No regional wall motion No regional wall motion abnormalities noted. abnormalities noted. EKG Data The baseline ECG displays normal sinus rhythm. Sinus tachycardia with PVCs. No significant ischemic ST-T changes. Symptoms with Stress The patient experinced Dyspnea. Patient had no chest pain. . Doppler Measurements & Calculations TR max donnie: 220.4 cm/sec TR max P.5 mmHg ECHO/Stress Test Echo w/o Contrast Interpretation Summary The estimated ejection fraction is 55-60 %. Stress echo is negative for exercise-induced chest pain or EKG or echocardiogra phic changes of ischemia. Functional capacity is very good for age Ordering Physician: Naveen Alvarado Referring Physician: Naveen Alvarado Performed By: Avinash Morales RCS
== END | disposition home or self-care (01) ==
LOC: CVS 12:39
PROVIDERS: PCP Family Medicine; Referring Provider Family Medicine; Visit Provider Family Medicine
DX: R55 Syncope and collapse (principal); R01.1 Cardiac murmur, unspecified; R40.4 Transient alteration of awareness; R06.00 Dyspnea, unspecified
CPT/HCPCS: 93017; 93350

== ENCOUNTER → 2022-01-27 | Outpatient (CLI) | payer MEDICARE, OTHER, SELFPAY ==
--- NOTE | 2022-01-27 12:25 | RAD_ITS ---
EXAM: XR CHEST, 2 VIEWS CLINICAL INDICATION: SOB -- for heart cath TECHNIQUE: Frontal and lateral views of the chest. This report was created using [employer] report generation technology. COMPARISON: None. FINDINGS: LUNGS AND PLEURAL SPACES: There is pleural thickening at the left lung apex. The lungs are mildly hyperinflated. No pneumothorax. No effusion. HEART: Unremarkable. Cardiac silhouette not enlarged. MEDIASTINUM: Central airways and mediastinal contour are unremarkable. BONES/JOINTS: Unremarkable. SOFT TISSUES: Unremarkable. RAD/Chest PA and Lateral IMPRESSION: Mild pulmonary hyperinflation with scarring at the left lung apex. There is no acute pulmonary abnormality. Electronically Signed: Toro Urrutia MD at 23:57 EST ,
[2022-01-27 13:21] LABS: Hematocrit 39.5 % (40-54); Hemoglobin 13.5 g/dL (13.0-16.5); Mean Corp Hgb Conc 34.2 g/dL (32-36); Mean Corpuscular Hgb 32.5 pg (27.0-32.0); Mean Platelet Vol. 10.1 fl (6.2-12.0); Platelet Count 173 K/mm3 (150-450); RBC Distribution Width CV 12.9 % (11.6-14.6); RBC Distribution Width SD 44.4 fl (35.1-43.9); Red Blood Count 4.16 M/mm3 (4.6-6.2); White Blood Count 5.5 K/mm3 (4.4-11.0)
[2022-01-27 13:31] LABS: International Normalized Ratio 1.1; Prothrombin Time (Protime)PT. 13.9 SECONDS (11.7-14.9)
[2022-01-27 13:32] LABS: Partial Thromboplast Time 27.9 Seconds (24.1-36.2)
[2022-01-27 13:51] LABS: Anion Gap 7 (5-15); BUN 26 mg/dL (7-18); BUN/Creat Ratio 34.8 RATIO (10-20); Chloride 106 mmol/L (98-107); Creatinine, Serum 0.75 mg/dL (0.70-1.30); EST Glomerular Filtration Rate 107 mL/min (>60); Est Glom Filt Rate - Afr Amer 130 mL/min (>60); Glucose 87 mg/dL (74-106); Potassium 4.2 mmol/L (3.5-5.1); Sodium Level 140 mmol/L (136-145)
== END | disposition home or self-care (01) ==
LOC: RAD 12:18
PROVIDERS: PCP Family Medicine; Referring Provider Internal Medicine Cardiovascular Disease; Visit Provider Internal Medicine Cardiovascular Disease
DX: I34.0 Nonrheumatic mitral (valve) insufficiency (principal); I77.810 Thoracic aortic ectasia; I47.29 Other ventricular tachycardia; R06.02 Shortness of breath
CPT/HCPCS: 36415; 71046; 80048; 85027; 85610; 85730

== ENCOUNTER → 2022-02-03 | Outpatient (CLI) | payer MEDICARE, OTHER, SELFPAY ==
--- NOTE | 2022-02-03 13:50 | ECHOD_ITS ---
Reason For Study: Murmur Procedure This was a 2D Doppler, Color Flow transthoracic echocardiogram. Exam performed in department. Left Ventricle Normal size and thickness. The left ventricular ejection fraction is 65 %. Diastolic function is indeterminate. Right Ventricle Normal right ventricle. Atria The left atrium is severely enlarged. The right atrium is mildly enlarged. Mitral Valve Moderate mitral valve prolapse. Moderately severe (3+) eccentric mitral valve insufficiency. Tricuspid Valve Mild (1+) tricuspid valve insufficiency. Normal pulmonary artery pressure. Aortic Valve Trisinus/trileaflet aortic valve. Aortic sclerosis, no stenosis. Mild (1+) aortic valve insufficiency. Pulmonic Valve The pulmonic valve is not well visualized. Great Vessels Mildly dilated aortic root. Pericardium/Pleural No pericardial effusion. MMode/2D Measurements & Calculations LVIDd: 6.6 cm IVSd: 1.1 cm Ao root diam: 4.0 cm LVIDs: 3.8 cm LVPWd: 1.1 cm RVDd: 4.0 cm FS: 41.4 % LAV(MOD-bp): 79.1 ml LVAd ap4: 32.2 cm2 SV(MOD-sp4): 67.6 ml LAV(MOD-bp) Indexed: 41.1 ml/m2 LVLd ap4: 7.9 cm LAV(MOD-sp2): 80.2 ml EDV(MOD-sp4): 106.4 ml LAV(MOD-sp4): 71.4 ml EDV(sp4-el): 111.3 ml LVAs ap4: 17.1 cm2 LVLs ap4: 6.4 cm ESV(MOD-sp4): 38.8 ml ESV(sp4-el): 38.8 ml EF(MOD-sp4): 63.5 % EF(sp4-el): 65.1 % SV(sp4-el): 72.5 ml LA A4 area: 25.4 cm2 LA dimension(2D): 4.6 cm RA A4 area: 17.8 cm2 Doppler Measurements & Calculations MV E max grant: 68.3 cm/sec Lat Peak E' Grant: 6.3 cm/sec Med Peak E' Grant: 5.1 cm/sec MV A max gratn: 81.7 cm/sec E/E' lat: 10.8 E/E' med: 13.4 MV E/A: 0.84 Ao V2 max: 105.3 cm/sec LV V1 max: 93.7 cm/sec PA V2 max: 101.0 cm/sec Ao max P.4 mmHg LV V1 max P.5 mmHg Ao V2 mean: 64.7 cm/sec Ao mean P.9 mmHg Ao V2 VTI: 19.8 cm TR max grant: 257.1 cm/sec TR max P.4 mmHg ECHO/Echo Complete Interpretation Summary The left ventricular ejection fraction is 65 %. Diastolic function is indeterminate. Moderately severe (3+) eccentric mitral valve insufficiency. Moderate mitral valve prolapse posterior leaflert. Mild (1+) tricuspid valve insufficiency. Normal pulmonary artery pressure. Aortic sclerosis, no stenosis. Mild (1+) aortic valve insufficiency. Mildly dilated aortic root. The left atrium is severely enlarged. The right atrium is mildly enlarged. Ordering Physician: Abdias Lugo Referring Physician: Naveen Alvarado Performed By: Tawana Currie, RDCS, RVT
== END | disposition home or self-care (01) ==
LOC: CVS 13:49
PROVIDERS: PCP Family Medicine; Referring Provider Internal Medicine Cardiovascular Disease; Visit Provider Internal Medicine Cardiovascular Disease
DX: I34.0 Nonrheumatic mitral (valve) insufficiency (principal)
CPT/HCPCS: 93306

== ENCOUNTER 2022-02-06 08:20 | Day surgery (SDC) | payer MEDICARE, OTHER, SELFPAY ==
[2022-02-05 07:20] VITALS: BMI 24.3
--- NOTE | 2022-02-06 11:07 | CL.D_ITS ---
Patient Name: JULITO WILLIS Study Date: 02/06/2022 Performing: Abdias Lugo MD Ht: 70 inches 177.8 cm : 1940 Wt: 170 lbs 77.11 kg Age: 81 Gender: male BSA: 1.95 PROCEDURE(S) PERFORMED DC02-([id number])[facility] CLINICAL PROFILE AND INDICATIONS Indications: Cardiac Arrythmia Heart Failure: None Angina Classification Anginal Classification w/in 2 Weeks: No symptoms CAD Presentations: No Sxs, no angina. CONCLUSIONS Mild non-obstructive CAD RECOMMENDATIONS Risk factor modification DESCRIPTION OF PROCEDURE The patient arrived to the procedure lab. The risks and benefits of the procedure as well as a full description of our services here and current unavailability of surgical backup were fully explained to the patient and/or their significant other prior to the catheterization. The Timeout was completed, verifying the correct patient and procedure. The patient's procedural site was prepped and draped in the usual fashion. Local anesthetic was given subcutaneously to right radial region with Lidocaine 2%. Using a modified Seldinger technique, arterial access was obtained via the right radial artery, a 6Fr sheath was inserted. Left Coronary Artery selective angiography was performed in multiple views using a 5 Fr. 4.0 Emelle catheter. Right Coronary Artery selective angiography was then performed in multiple views using a 5 Fr. 4.0 Emelle catheter.The arterial sheath was pulled and a TR Band was applied for hemostasis CORONARY ANGIOGRAPHY DOMINANCE: Right Dominant LEFT ANTERIOR DESCENDING ARTERY: LAD: Tubular 30% Proximal lesion in LAD CIRCUMFLEX ARTERY: CIRCUMFLEX: Tubular 30% Proximal lesion in Circumflex RIGHT CORONARY ARTERY: MID RCA: 10 % Stenosis RCA: Tubular 10% Mid lesion in RCA COMPLICATIONS No Complications PROCEDURE MEDICATIONS Versed 1 mg IV Fentanyl 50 mcg IV Versed 1 mg IV Oxygen: 2 L/min via nasal cannula Heparin given IA 02/06/2022 10:35:54 Verapamil 2.5mg, Ntg 200mcgs, 2000 units of Heparin given IA 02/06/2022 10:35:54 SUMMARY OF HEMODYNAMIC DATA Time AIR REST ECG 08:38:29 Art 121/51 (76) 10:39:02 AO 122/95 (92) SA 10:44:54 AO 0/-12 (-10) 10:50:58 11:03:53 Signed By Abdias Lugo MD On 02/06/2022 11:06:42 Abdias Lugo MD
== END 2022-02-06 12:45 | disposition home or self-care (01) ==
LOC: CLSP 08:22
PROVIDERS: PCP Family Medicine; Referring Provider Internal Medicine Cardiovascular Disease; Visit Provider Internal Medicine Cardiovascular Disease
DX: I25.10 Atherosclerotic heart disease of native coronary artery without angina pectoris (principal); I49.9 Cardiac arrhythmia, unspecified; Z79.82 Long term (current) use of aspirin
CPT/HCPCS: 93454; 99152; 99153; J7040; Q9967; C1769; C1894

== ENCOUNTER → 2022-07-08 | Outpatient (CLI) | payer MEDICARE, OTHER, SELFPAY ==
--- NOTE | 2022-07-08 12:47 | RAD_ITS ---
STUDY: X-RAY - PELVIS AND LEFT HIP REASON FOR EXAM: Male, 81 years old. Chronic left hip pain. TECHNIQUE: 3 views of the pelvis and hip. COMPARISON: October 07, 2021. FINDINGS: There is a non-specific bowel gas pattern. Normal visualized soft tissue structures. Evidence of prior herniorrhaphy. Stable degenerative changes of the lumbar spine. Normal bilateral iliac wings, sacroiliac joints and visualized sacrum. Normal bilateral superior and inferior pubic rami. Normal pubic symphysis. Normal bilateral ischial tuberosities. Stable degenerative changes of the right hip. There are no sclerosis with lucencies in the superior aspect of the articular surface of the left femur. There is cortical sclerosis of the acetabulum. is severe articular joint space narrowing of the hip. RAD/HIP, UNI W/ Pelvis 2-3 Views IMPRESSION: Severe degenerative changes left hip. Question AVN. Remainder of the findings appears stable. Electronically Signed: Zana Galeana DO at 16:44 EDT ,
== END | disposition home or self-care (01) ==
LOC: LAB 12:40
PROVIDERS: PCP Family Medicine; Referring Provider Anesthesiology Pain Medicine; Visit Provider Anesthesiology Pain Medicine
DX: M16.12 Unilateral primary osteoarthritis, left hip (principal)
CPT/HCPCS: 73502

== ENCOUNTER → 2022-09-22 | Outpatient (CLI) | payer MEDICARE, OTHER, SELFPAY ==
--- NOTE | 2022-09-22 11:00 | ECHOD_ITS ---
Reason For Study: MVP Procedure This was a 2D Doppler, Color Flow transthoracic echocardiogram. Images taken with patient supine. Exam performed in department. Left Ventricle Mildly dilated left ventricle. The left ventricular ejection fraction is 60 %. Diastolic function is indeterminate. Right Ventricle Normal right ventricle. Atria The left atrium is moderately enlarged. The right atrium is severely enlarged. Mitral Valve Posterior leaflet mitral valve prolapse. Moderately severe (3+) mitral valve insufficiency. Tricuspid Valve Mild (1+) tricuspid valve insufficiency. Normal pulmonary artery pressure. Aortic Valve Aortic sclerosis, no stenosis. Mild (1+) aortic valve insufficiency. Pulmonic Valve The pulmonic valve is not well visualized. Great Vessels Mildly dilated aortic root. Pericardium/Pleural No pericardial effusion. MMode/2D Measurements & Calculations LVIDd: 5.7 cm IVSd: 0.91 cm Ao root diam: 4.1 cm LVIDs: 3.1 cm LVPWd: 1.0 cm LA dimension: 3.8 cm RVDd: 4.9 cm FS: 45.8 % LAV(MOD-bp): 84.8 ml LVAd ap4: 33.3 cm2 SV(MOD-sp4): 75.5 ml LAV(MOD-bp) Indexed: 43.6 ml/m2 LVLd ap4: 8.0 cm LAV(MOD-sp2): 78.0 ml EDV(MOD-sp4): 112.0 ml LAV(MOD-sp4): 85.5 ml EDV(sp4-el): 117.8 ml LVAs ap4: 15.9 cm2 LVLs ap4: 5.7 cm ESV(MOD-sp4): 36.6 ml ESV(sp4-el): 37.2 ml EF(MOD-sp4): 67.4 % EF(sp4-el): 68.4 % SV(sp4-el): 80.5 ml LA A4 area: 27.2 cm2 RA A4 area: 26.6 cm2 TAPSE: 1.8 cm Time Measurements MV dec time: 0.23 sec Doppler Measurements & Calculations MV E max grant: 64.3 cm/sec Lat Peak E' Grant: 7.7 cm/sec Med Peak E' Grant: 9.6 cm/sec MV A max grant: 72.2 cm/sec E/E' lat: 8.3 E/E' med: 6.7 MV E/A: 0.89 MV V2 max: 82.6 cm/sec MV P1/2t max grant: 81.1 cm/sec Ao V2 max: 102.0 cm/sec MV max P.7 mmHg MV P1/2t: 81.2 msec Ao max P.2 mmHg MV V2 mean: 35.7 cm/sec MV dec slope: 292.7 cm/sec2 Ao V2 mean: 73.4 cm/sec MV mean P.71 mmHg Ao mean P.4 mmHg MV V2 VTI: 29.1 cm MVA(P1/2t): 2.7 cm2 Ao V2 VTI: 24.3 cm AV (velocity ratio): 0.81 LV V1 max: 79.4 cm/sec PA V2 max: 91.5 cm/sec PI end-d grant: 77.2 cm/sec LV V1 max P.5 mmHg LV V1 mean P.2 mmHg LV V1 mean: 50.7 cm/sec LV V1 VTI: 19.6 cm TR max grant: 229.4 cm/sec TR max P.1 mmHg ECHO/Echo Complete Interpretation Summary Mildly dilated left ventricle. The left ventricular ejection fraction is 60 %. Diastolic function is indeterminate. The left atrium is moderately enlarged. The right atrium is severely enlarged. Posterior leaflet mitral valve prolapse. Moderately severe (3+) mitral valve insufficiency. Recommend BRENDA for further ev aluation if clinically indicated. Mild (1+) tricuspid valve insufficiency. Mild (1+) aortic valve insufficiency. Mildly dilated aortic root. Ordering Physician: Abdias Lugo Referring Physician: Naveen Alvarado Performed By: Avinash Morales RCS
== END | disposition home or self-care (01) ==
LOC: CVS 10:55
PROVIDERS: PCP Family Medicine; Referring Provider Internal Medicine Cardiovascular Disease; Visit Provider Internal Medicine Cardiovascular Disease
DX: I34.0 Nonrheumatic mitral (valve) insufficiency (principal); I34.1 Nonrheumatic mitral (valve) prolapse; R06.02 Shortness of breath
CPT/HCPCS: 93306

== ENCOUNTER → 2022-10-21 | Outpatient (CLI) | payer MEDICARE, OTHER, SELFPAY ==
[2022-10-21 10:57] LABS: Anion Gap 4 (5-15); BUN 23 mg/dL (7-18); BUN/Creat Ratio 22.3 RATIO (10-20); Calcium,Total 9.1 mg/dL (8.5-10.1); Chloride 107 mmol/L (98-107); Creatinine, Serum 1.03 mg/dL (0.70-1.30); EST Glomerular Filtration Rate 74 mL/min (>60); Est Glom Filt Rate - Afr Amer 89 mL/min (>60); Glucose 137 mg/dL (74-106); Potassium 4.2 mmol/L (3.5-5.1); Sodium Level 138 mmol/L (136-145)
== END | disposition home or self-care (01) ==
LOC: LAB 10:08
PROVIDERS: PCP Family Medicine; Referring Provider Nurse Practitioner Family; Visit Provider Nurse Practitioner Family
DX: I34.1 Nonrheumatic mitral (valve) prolapse (principal); I34.0 Nonrheumatic mitral (valve) insufficiency
CPT/HCPCS: 36415; 80048

== ENCOUNTER → 2022-10-27 | Outpatient (CLI) | payer MEDICARE, OTHER, SELFPAY ==
--- NOTE | 2022-10-27 09:08 | ECHOTEE_ITS ---
Reason For Study: MR Medication BRENDA probe 6VT-D (SN [id number]) passed without difficulty. No complications were noted. Cetacaine Topical [place] given X3 orally. Versed 2 mg given slow IVP. Fentanyl 50 mcg given slow IVP. Performed a rapid injection of agitated mix of 9 cc saline and 1cc air to assess for atrial septal defect. Left Ventricle Normal LV size. Left ventricular systolic function is normal. The estimated ejection fraction is 60 %. No regional wall motion abnormalities noted. Right Ventricle Normal RV size. Normal systolic function. Atria Normal atrial septum. Bubble contrast study negative for right to left interatrial shunt. Normal left atrium. Normal right atrium. Mitral Valve Posterior leaflet mitral valve prolapse. Moderately severe (3+) anteriorly directed mitral valve insufficiency. Tricuspid Valve Normal tricuspid valve. Mild tricuspid valve insufficiency. Aortic Valve Trisinus/trileaflet aortic valve. Pulmonic Valve Normal pulmonic valve. Vessels Normal aortic root. Normal arch. The pulmonary artery is normal size. Pericardium No pericardial effusion. ECHO/Echo Transesophageal (BRENDA) Interpretation Summary Normal LV size. Left ventricular systolic function is normal. The estimated ejection fraction is 60 %. Posterior leaflet mitral valve prolapse. Moderately severe (3+) anteriorly directed mitral valve insufficiency. Ordering Physician: Inocencio Currie Referring Physician: Naveen Alvarado Performed By: Tawana Currie, RDCS, RVT
== END | disposition home or self-care (01) ==
LOC: CVS 09:06
PROVIDERS: PCP Family Medicine; Referring Provider Nurse Practitioner Family; Visit Provider Nurse Practitioner Family
DX: I34.0 Nonrheumatic mitral (valve) insufficiency (principal)
CPT/HCPCS: 93312; 93320; 93325; J7040; A4216

== ENCOUNTER → 2022-11-21 | Outpatient (CLI) | payer MEDICARE, OTHER, SELFPAY ==
--- NOTE | 2022-11-21 08:05 | AAVD_ITS ---
Reason For Study: Anuerysm Aorta Measurements Aorta Doppler Measurements Proximal aorta measures1.98cm x 2.06cm. in cross- Peak systolic flow velocities within the proximal sectional axis. aorta measure 174 cm/sec. Proximal aorta measures1.98cm. in longitudinal Peak systolic flow velocities within the mid aorta axis. measure 81 cm/sec. Mid aorta measures2.06cm x 2.12cm. in cross- Peak systolic flow velocities within the distal sectional axis. aorta measure 76 cm/sec. Mid aorta measures1.94cm. in longitudinal axis. Distal aorta measures2.00cm x 2.06cm. in cross- sectional axis. Distal aorta measures1.85cm. in longitudinal axis. Left Iliac Artery Left iliac artery measures 2.03cm x 1.96 cm. in the cross-sectional axis. Left iliac artery measures 2.08 cm. in the longitudinal axis. Peak systolic velocity in the left iliac artery measures 53 cm/sec. Right Iliac Artery Right iliac artery measures 1.62cm x 1.71 cm. in the cross-sectional axis. Right iliac artery measures 1.51 cm. in the longitudinal axis. Peak systolic velocity in the right iliac artery measures 41 cm/sec. Procedure Aorta IVC Iliac vasculature or bypass grafts 10966. Technically difficult; aorta is tortuous. Exam performed in department. 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
== END | disposition home or self-care (01) ==
LOC: CVS 08:02
PROVIDERS: PCP Family Medicine; Referring Provider Surgery Vascular Surgery; Visit Provider Surgery Vascular Surgery
DX: I72.3 Aneurysm of iliac artery (principal)
CPT/HCPCS: 93978

== ENCOUNTER → 2023-04-13 | Outpatient (CLI) | payer MEDICARE, OTHER, SELFPAY ==
--- NOTE | 2023-04-13 10:01 | CR.HP_ITS ---
CR - History & Physical General Arrival date:: 04/13/23 Arrival time:: 10:01 Date of Referral:: 03/30/23 Date of CR Evaluation:: 04/13/23 Referring Physician: Dr. Erickson Esposito Primary Diagnosis: S/P mitral valve repair History of Present Cardiac Event Onset Date Heart valve replacement or repair:: Yes (03/24/23 onset) Medications Ambulatory Orders Medication Instructions Recorded budesonide-formoterol HFA 160 2 puff inhalation DAILY 01/27/22 mcg-4.5 mcg/actuation aerosol inhaler (Symbicort) metoprolol tartrate 25 mg tablet 12.5 mg (1/2 x 25 mg) PO DAILY #60 02/26/22 tabs meloxicam 7.5 mg tablet 7.5 mg PO DAILY ord per Dr. Guzman 04/01/22 aspirin 81 mg tablet,delayed 81 mg PO DAILY #90 tabs 10/31/22 release (Adult Low Dose Aspirin) furosemide 20 mg tablet 20 mg PO DAILY #90 tabs 10/31/22 potassium chloride 10 mEq 10 meq PO DAILY #90 tabs 10/31/22 tablet,extended release amlodipine 5 mg tablet 5 mg PO DAILY #90 tabs 03/10/23 Allergies Allergies lisinopril Allergy (Severe, Verified 12/03/22 10:23) ANGIODEMA Sleep Disorder Evaluation Hx of Sleep Apnea: No Do you snore loudly (louder than talking or can be heard through closed doors)?: No Do you often feel tired/ fatigued/ sleepy during daytime?: No Has anyone observed you stop breathing during sleep?: No History of Hypertension (for STOP score): No STOP Results: Negative Advanced Directives Advanced Directives Power of Shipping And Receiving Supervisor: Yes Living Will: Yes Advance Directives Information Provided: Yes Advance Directives on File: No DNR Order?:: No Past Medical History Covid-19 Screening Physicial Symptoms Other Clinical Concerns Exposure Risk Pertinent Comorbidities 65 years or older:: Yes Has a chronic lung disease or moderate to severe asthma:: Yes Has a serious heart condition:: Yes Past Medical Illness Medical History Aneurysm artery, iliac common Aortic root dilation CAD (coronary artery disease) COPD (chronic obstructive pulmonary disease) Diverticulitis of small intestine GERD (gastroesophageal reflux disease) Nonrheumatic mitral (valve) prolapse Nonrheumatic mitral valve regurgitation 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 Pulmonary nodule SOB (shortness of breath) Past Surgical History Surgical History H/O hernia repair (~04/30/10) H/O toe surgery History of left heart catheterization (LHC) (~02/06/22) Family History Summary Family History Mother Cancer CVA (cerebral vascular accident) Father Heart disease Social History Smoking History Smoking Status: Never smoker Alcohol Use Alcohol Usage: No Occupation Occupation (List type of work in comments):: Retired Hobbies, Recreation, Social Activities Hobbies: Other Recreational Activities: I am able to engage in all my recreational activities Social Environment Status Marital Status: Current Living Arrangements Living Environment:: Spouse Children How many children do you have?: 2 Do any of your children live nearby?: Yes Safety Do you feel safe in your surroundings?: Yes Assistance Do you need any assistance at home?: no Review of Systems Review of Systems Hints Review of Present Symptoms: Reports Shortness of Breath with Exertion, Fatigue and Appetite - Normal; Denies Shortness of Breath at Rest, PVD, Operative Discomfort, Angina, Wound Healing, Dizziness/Lightheadedness, Heart Arrhythmia/Irregularities, Appetite - Special Diet, Sleep - Normal or Sexual Changes Pain Is Patient Pain Free?: No Pain Location: other (L hip) Pain Level: 9/10 Risk Factor Assessment Chief Complaint Chief Complaint: s/p mitral valve repair Vital Signs Blood Pressure: 108/61 Pulse Pulse Rate: 52 Hypertension Blood Pressure Sitting - Right Arm: 108/61 Obesity Height: 5 ft 10 in Weight:: 155 lb Weight in Pounds: 155.0 lbs Body Mass Index (BMI): 22.2 Nutritional Referral for Obesity: No Physical Inactivity Physical Inactivity: Reg Exercise 30 min/day Risk Stratification Risk Guidelines: Lowest Risk: Risk Factor for Smoking and Risk Factor for Obesity, Moderate Risk: Risk Factor for Diabetes, Risk Factor for Hypertension, Risk Factor for Sedentary Lifestyle and Risk Factor for Depression and Highest Risk: Risk Factor for Dyslipidemia For Smoking Smoking Risk Guidelines For Dyslipidemia Dyslipidemia Risk Guidelines For Diabetes Mellitus Diabetes Risk Guidelines For Obesity/Overweight Obesity/Overweight Risk Guidelines For Hypertension Hypertension Risk Guidelines For Sedentary Lifestyle Sedentary Lifestyle Risk Guidelines For Depression Depression Risk Guidelines Family History Family History Mother Cancer CVA (cerebral vascular accident) Father Heart disease Motivation Motivation to Participate On a scale of 1 to 10, how prepared are you to commit to attending program?: 8 What do you see as barriers to successfully being able to complete the program?: none What do you see as the benefits of succesfully completing the program? In other words, what do you hope to get out of participating in the program?: improved health Are there issues you are dealing with that will interfere with completing the program?: no Do you have a spouse or signficant other, family or friends who will help support you to complete the program?: yes
[2023-04-13 10:11] VITALS: BP 108/61; PULSE 52
--- NOTE | 2023-04-13 10:11 | PCM.CR.ITP ---
Diagnosis General Information Admitting Diagnosis: s/p mitral valve repair Personal Learning Style:: Audio/Visual Stage of change r/t lifestyle modifications:: Contemplation Gave educational material for:: Treating Heart Disease, How The Heart Works, What it means to have Heart Disease, How Coronary Artery Disease is Diagnosed, Heart Procedures, What Heart Medications Do, Risk Factors & Modifications, Living an Active Life, Nutrition, Emotions & Heart Disease, Stress Management & Relaxation and Sleep Disorders & Heart Disease Education/Goals Cardiac Rehabilitation Goals Personal Goals: Initial Assessment: Improve management of stress and emotions, Improve energy level, Get back to work, or to resume activities faster and Improve muscle strength and endurance Scale for measuring improvement of personal goals Diagnosis & Disease Process Outcomes/Goals: Pt IDs own risk factors & lifestyle modifications by Session 10, Verbalizes symptoms of angina & response by session 3., Pt independently manages and Other Additional Outcomes/Goals: Plan/Interventions: Assist Pt to ID & engage in lifestyle modification to reduce CVD risk, Instruct on individual risk factors, Review symptoms of angina & emergency actions, Review secondary diagnosis & identify educational needs. and Other see comment 30 day Reassessments:: Not Met 30 day Reassessments:: Not Met 30 day Reassessments:: Not Met 30 day Reassessments:: Not Met Final Reassessments:: Not Met Safety Referral to Physical Therapy: No Referral to [facility] Case Management: No Fall Risk Assessed:: Yes Assistive Devices:: Cane and Wheelchair Exercise - Initial Assessment Visit Date of Eval: 04/13/23 (initial eval ) Mets: Pre-: >3 METS for 30 minutes by discharge, >5 METS for 30 minutes by discharge, >7 METS for 30 minutes by discharge and Unable to meet goal due to: (see comment below) Physician Prescribed Exercise Modalities: Airdyne, NuStep, SciFit and Lateral Green Marketing Analyst Frequency: 3x/week for 12 weeks [36 sessions] Intensity: 60-80% of age predicted maximum heart rate reserve Duration: 30 - 45 minutes Current METSs:: 3 Target Heart Rate:: 84-98 Resting Blood Pressure: 108/61 EKG Type: SB Outcomes & Goals Goals:: Verbalizes understanding of THR, RPE & goal METS by session 6, Documents in home exercise log/reports 30 min aerobic 5 day/wk by DC, Demonstrates accurate pulse taking by DC and Other additional outcome/goals: see below Intervention & Plan Exercise Program Goals: Instruct on personal THR & RPE, Instruct on MET level & personal MET goal, Show patient to take own pulse /validate performance until accurate, Instruct on home exercise and Other additional plan/int Physical Activity Home Exercise Physical Activity - Home Exercise: Safe Exercise, Warm-up, Self-monitoring, Cool-Down, Home Exercise > 30 min Daily and Sitting Time <3 hours/daily Outcomes & Goals Outcomes/Goals: Demonstrates correct Warm-up/exercise Cool-Down (S3) if = 2.5 METs, Verbalizes symptoms of exercise intolerance by Session 3 (S3), Demonstrate safe equipment use (S3) & follows exercise prescrition (6) and Other: See below Intervention & Plan Plan/Intervention: Instruct warm-up & cool-down if exercising at > 2 METs, Instruct on symptoms of exercise intolerance & actions to take, Instruct & monitor on saf, Assess intial functional capacity & safety risk and Other See below Nutrition - Initial Assessment Program Goals Nutrition Program Goals Patient has diagnosis of Hyperlipidemia (ICD E78)?: Yes Visit Date of Eval: 04/13/23 (initial eval ) Cholesterol/Lipids (Other Core Measures) Determine presence & major risk factors that modify LDL goal: Hypertension or hypertensive medication, Low HDL cholesterol <40 mg/dL*, Family history of premature CHD in Male < 55 years: female <65 yearsFa and Age men > 45 years; women >/= 55 years Outcomes/Goals: Pt IDs own risk factors & lifestyle modifications by Session 10, Verbalizes symptoms of angina & response by session 3., Pt independently manages and Other Additional Outcomes/Goals: Intervention/Plan: Advocate for lipid panel cholesterol medication if applicable, Instruct on personal lipid levels & lipid goals/NCEP guidelines, Instruct on cholesterol and Other additional plan/int Referral to dietitian:: No Diabetes (Other Core Measures) Diabetes Type: Not Applicable Weight Mgt (Other Care) Height: 5 ft 10 in Weight:: 155 lb BMI: 22.2 Diagnosis Overweight/Obesity BMI> 30% ICD-10 E66: No Diagnosis High BMI/Morbid Obesity BMI> 35% ICD-10 Z68: No Outcomes/Goals: Pt sets, maintains & shows weight loss goal & trend during rehab and Other additional outcomes/goals Intervention/Plan: Instruct on ideal BMI & set weight loss goal w/patient, Assist pt to ID & incorporate diet changes for weight loss by S9, Refer to Structured Weight Loss program as appropriate, Encourage goal of using 250-300dcal per session for weight loss and Other additional plan/interventions Healthy Eating Habits Will attend diet classes:: Yes Outcomes/Goals:: Consume diet rich in vegs,fruits,whole grain/high fiber,fish,lean meat, Limit sat/trans fats,cholesterol & added salts & sugars and Other additional outcome/goals: Intervention/Plan:: Assess current eating habits and Other Additional plan/interventions Education Gave educational materials for:: Signs & symptoms of hypoglycemia, Signs & symptoms of hyperglycemia, Relate diabetes to coronary artery disease and Healthy eating Core - Initial Assessment Visit Date of Eval: 04/13/23 (initial eval ) Medication Compliance Preventative Medication(s):: Aspirin and Beta clark H/O mental health issues: depression, anxiety, or addiction?: No Doesn?t believe in the benefits of treatment?: No Believes medications are unnecessary or harmful?: No Has a concern about medication side effects?: No Expresses concern over the cost of medications?: No Outcomes/Goals: Verbalizes medications,desired effect & common side effects @ DC, Pt self-reports following medication regimen, Keeps card in wallet w/medications listed by DC and Other additional outcome/goals: Interventions/plans: Instruct on medication effects & side effects, Review medication list w/patient every two weeks, Instruct importance of taking meds as ordered & assist problem solving and Other additional Tobacco Use Tobacco Use: Non-smoker Hypertension Resting Blood Pressure:: 108/61 [place] [employer] Hypertension Guidelines Outcomes/Goals: Able to verbalize/achieve optimal blood pressure <130/80, Incorporates diet changes & exercise for blood pressure control by DC and Other additional outcomes/goals Interventions/plan: Instruct on optimal blood pressure, hypertension & medications, Instruct on effects of sodium, alcohol, stress, exercise &hypertension and Other additional plan/interventions Tobacco Cessation Referral Smoking Cessation Referral:: No Individual Education/Counseling:: No Education Schedule Given:: Yes Psychosocial - Initial Assess VIsit Date of Eval: 04/13/23 (initial eval) History of previous Mental disease:: No Target Goals Target Goals Outcomes/Goals: See list Psychosocial Outcomes/Goals:: ID's personal stressors & 2 strategies to manage stress by discharge and Other Additional outcome/goals: Intervention/Plan: See List Interventions/Plan:: Assess stressors,coping strategies & signs of derpression on admission, Instruct/assist pt to develop coping & personal stress Mgt strategies, Refer to Behavioral Health if appropriate, Refer to Physician if appropriate, Instruct patient to recognize signs & symptoms of depression, Instruct patient to recog and Other additional plan/intervention Patient Health Questionnaire PHQ-9 Screening Initial Assessment: 1. Little interest or pleasure in doing things: Not at all 2. Feeling down, depressed, or hopeless: Not at all 3. Trouble falling or staying asleep, or sleeping too much: Several days 4. Feeling tired or having little energy: Several days 5. Poor appetite or overeating: Not at all 6. Feeling bad about yourself -- or that you are a failure or have let yourself or your family down: Not at all 7. Trouble concentrating on things, such as reading the newspaper or watching television: Not at all 8. Moving or speaking so slowly that other people could have noticed. Or the opposite - being so fidgety or restless that you have been moving around a lot more than usual: Not at all 9. Thoughts that you would be better off , or of hurting yourself in some way: Not at all How difficult have these problems made it for you to do your work, take care of things at home, or get along with other people?: Not difficult at all Total Score: 2 WILDA-Q SV Test Statements CAD is a disease of the arteries in the heart: False Examples of risk factors for heart disease: True Angina is chest pain or discomfort: I Don't Know The benefits of resistance training include: I Don't Know Eating more meat and dairy products: I Don't Know Anti-platelet medications such as aspirin are important: True The only effective way to manage stress: False An exercise warm-up slowly increases heart rate: I Don't Know Prepared, processed foods usually have high sodium: True Depression is common after a heart attack: True The statin medications lower cholesterol: I Don't Know To control blood pressure, lower the amount of sodium: True If someone gets chest discomfort during walking: False Transfats are partially hydrogenated vegetable oils: I Don't Know Sleep apnea that is not treated increases the risk: I Don't Know To control cholesterol, one should become a vegetarian: False Someone knows if he/she is exercising at the right level: I Don't Know Diabetes cannot be prevented with exercise & health eating: False Stress is a large risk for heart attack: True A diet that can help lower blood pressure is rich in: True Total Score Total Correct Responses: 12 Self-Efficacy 6-Item Scale Initial Assessment: We would like to know how confident you are in doing certain activities. Please select your confidence level for: Fatigue Select Number: 8 Physical Discomfort or Pain Select Number: 9 Emotional Distress Select Number: 9 Other Symptoms or Health Problems Select Number: 8 Different Tasks and Activities Select Number: 7 Medication Select Number: 8 Total Score:: 8 Nutrition Survey Nutrition Survey Instructions Scoring Instructions Nutrition Survey Initial: Have you lost >10 lbs over the past 2 months without trying?: No Are you following a special diet at home for diabetes, low fat, or low salt?: No Are you interested in meeting with a dietitian for help understanding your diet?: No Do you eat less than 3 meals a day?: No Do you eat fatty meats (hagen, sausage, ribs, etc), fried foods, desserts, large amounts of salad dressings, margarine, butter, or cheese most days?: No Do you have food allergies? [Enter types in comment field]: No Do you eat in restaurants more than 3 times a week?: No Do you season food with salt, seasoning salt, or garlic salt?: Yes Do you used canned, boxed, frozen meals, or soups, seasoning packets?: No Total Score:: 1 Exercise - Final/Discharge Physician Prescribed Exercise Modalities: Airdyne, NuStep, SciFit and Lateral Green Marketing Analyst Frequency: 3x/week for 12 weeks [36 sessions] Intensity: 60-80% of age predicted maximum heart rate reserve Current METSs:: 3 Target Heart Rate:: 84-98 Nutrition - 30-Day Assessment Weight Mgt (Other Care) Height: 5 ft 10 in Weight:: 155 lb BMI: 22.2 Nutrition - 60-Day Assessment Weight Mgt (Other Care) Height: 5 ft 10 in Weight:: 155 lb BMI: 22.2 Core - Final Assessment Hypertension Resting Blood Pressure:: 108/61 [place] [employer] Hypertension Guidelines Core - 60-Day Assessment Hypertension Resting Blood Pressure:: 108/61 [place] [employer] Hypertension Guidelines Psychosocial - 30-Day Assess Target Goals Target Goals Psychosocial - 60-Day Assess Target Goals Target Goals Psychosocial - 90-Day Assess Target Goals Target Goals Psychosocial - Final Assessmen Target Goals Target Goals Nutrition - 90-Day Assessment Weight Mgt (Other Care) Height: 5 ft 10 in Weight:: 155 lb BMI: 22.2 Nutrition - Final Assessment Program Goals Patient has diagnosis of Hyperlipidemia (ICD E78)?: Yes Weight Mgt (Other Care) Height: 5 ft 10 in Weight:: 155 lb BMI: 22.2
[2023-04-13 10:20] VITALS: BP 108/61
[2023-04-13 10:43] VITALS: BP 108/61; BMI 22.2
[2023-04-13 11:16] VITALS: BMI 22.2
== END | disposition home or self-care (01) ==
LOC: CR 09:54
PROVIDERS: PCP Family Medicine
DX: Z00.00 Encounter for general adult medical examination without abnormal findings (principal)

== ENCOUNTER 2023-04-22 10:15 | Outpatient (RCR) | payer MEDICARE, OTHER, SELFPAY ==
[2023-04-13 11:16] VITALS: BMI 22.2
== END 2023-04-22 23:59 ==
LOC: CR 10:15
PROVIDERS: PCP Family Medicine
DX: I25.10 Atherosclerotic heart disease of native coronary artery without angina pectoris (principal); Z98.890 Other specified postprocedural states
CPT/HCPCS: 93798

== ENCOUNTER 2023-05-20 10:15 | Outpatient (RCR) | payer MEDICARE, OTHER, SELFPAY ==
[2023-04-13 11:16] VITALS: BMI 22.2
--- NOTE | 2023-05-13 09:27 | CR.ITP_ITS ---
Exercise - Initial Assessment Visit Session #:: 12 Nutrition - Initial Assessment Weight Mgt (Other Care) Height: 5 ft 10 in Weight:: 167 lb BMI: 23.9 Psychosocial - Initial Assess Target Goals Target Goals Patient Health Questionnaire PHQ-9 Screening 30-Day Re-eval Assessment: 1. Little interest or pleasure in doing things: Not at all 2. Feeling down, depressed, or hopeless: Not at all 3. Trouble falling or staying asleep, or sleeping too much: Several days 4. Feeling tired or having little energy: Several days 5. Poor appetite or overeating: Not at all 6. Feeling bad about yourself -- or that you are a failure or have let you rself or your family down: Not at all 7. Trouble concentrating on things, such as reading the newspaper or watching television: Not at all 8. Moving or speaking so slowly that other people could have noticed. Or the opposite - being so fidgety or restless that you have been moving around a lot more than usual: Not at all 9. Thoughts that you would be better off , or of hurting yourself in some way: Not at all How difficult have these problems made it for you to do your work, take care of things at home, or get along with other people?: Not difficult at all Total Score: 2 Self-Efficacy 6-Item Scale 30-Day Re-eval Assessment: We would like to know how confident you are in doing certain activities. Please select your confidence level for: Fatigue Select Number: 8 Physical Discomfort or Pain Select Number: 9 Emotional Distress Select Number: 9 Other Symptoms or Health Problems Select Number: 8 Different Tasks and Activities Select Number: 7 Medication Select Number: 8 Total Score:: 8 Nutrition Survey Nutrition Survey Instructions Scoring Instructions Exercise - 30-day Assessment Visit Date of Eval: 05/13/23 Session #:: 12 Physician Prescribed Exercise Modalities: NuStep Frequency: 3x/week for 12 weeks [36 sessions] Intensity: 60-80% of age predicted maximum heart rate reserve Duration: 30 - 45 minutes Current METSs:: 3 Target Heart Rate:: 84-98 Current RPE:: 13 Maximum Excercise HR:: 64 Resting Blood Pressure: 118/58 Maximum Exercise Blood Pressure: 128/78 EKG Type: SB to NSR with occas PAC's and PVC's Outcomes & Goals Goals:: Verbalizes understanding of THR, RPE & goal METS by session 6, Documents in home exercise log/reports 30 min aerobic 5 day/wk by DC, Demonstrates accurate pulse taking by DC and Other additional outcome/goals: see below Intervention & Plan Exercise Program Goals: Instruct on personal THR & RPE, Instruct on MET level & personal MET goal, Show patient to take own pulse /validate performance until accurate, Instruct on home exercise and Other additional plan/int 30-day Reassessments 30 day Reassessments:: Progressing Reassessment Notes & Comments:: RPE explained Physical Activity Home Exercise Physical Activity - Home Exercise: Safe Exercise, Warm-up, Self-monitoring, Cool-Down, Home Exercise > 30 min Daily and Sitting Time <3 hours/daily Outcomes & Goals Outcomes/Goals: Demonstrates correct Warm-up/exercise Cool-Down (S3) if = 2.5 M ETs, Verbalizes symptoms of exercise intolerance by Session 3 (S3), Demonstrate safe equipment use (S3) & follows exercise prescrition (6) and Other: See below Intervention & Plan Plan/Intervention: Instruct warm-up & cool-down if exercising at > 2 METs, Instruct on symptoms of exercise intolerance & actions to take, Instruct & monitor on saf, Assess intial functional capacity & safety risk and Other See below 30-day Reassessments 30 day Reassessments:: Progressing Reassessment Notes & Comments:: warm up encouraged Nutrition - 30-Day Assessment Program Goals Nutrition Program Goals Patient has diagnosis of Hyperlipidemia (ICD E78)?: Yes Visit Date of Eval: 05/13/23 Session #:: 12 Cholesterol/Lipids (Other Core Measures) Determine presence & major risk factors that modify LDL goal: Hypertension or hypertensive medication, Low HDL cholesterol <40 mg/dL*, Family history of premature CHD in Male < 55 years: female <65 yearsFa and Age men > 45 years; women >/= 55 years Outcomes/Goals: Pt IDs own risk factors & lifestyle modifications by Session 10, Verbalizes symptoms of angina & response by session 3., Pt independently manages and Other Additional Outcomes/Goals: Intervention/Plan: Advocate for lipid panel cholesterol medication if applicable, Instruct on personal lipid levels & lipid goals/NCEP guidelines, Instruct on cholesterol and Other additional plan/int Referral to dietitian:: No 30-day Reassessments:: Progressing Reassessment Notes & Comments:: pt to attend nutrition class Diabetes (Other Core Measures) Diabetes Type: Not Applicable Weight Mgt (Other Care) Height: 5 ft 10 in Weight:: 167 lb BMI: 23.9 Diagnosis Overweight/Obesity BMI> 30% ICD-10 E66: No Diagnosis High BMI/Morbid Obesity BMI> 35% ICD-10 Z68: No Outcomes/Goals: Pt sets, maintains & shows weight loss goal & trend during rehab and Other additional outcomes/goals Intervention/Plan: Instruct on ideal BMI & set weight loss goal w/patient, Assist pt to ID & incorporate diet changes for weight loss by S9, Refer to Structured Weight Loss program as appropriate, Encourage goal of using 250-300dcal per session for weight loss and Other additional plan/interventions 30 day Reassessments:: Progressing Reassessment Notes & Comments:: pt to attend nutrition class Healthy Eating Habits Will attend diet classes:: Yes Outcomes/Goals:: Consume diet rich in vegs,fruits,whole grain/high fiber,fish,lean meat, Limit sat/trans fats,cholesterol & added salts & sugars and Other additional outcome/goals: Intervention/Plan:: Assess current eating habits and Other Additional plan/interventions 30-day Reassessments:: Progressing Reassessment Notes & Comments:: pt to attend nutrition class Education Gave educational materials for:: Signs & symptoms of hypoglycemia, Signs & symptoms of hyperglycemia, Relate diabetes to coronary artery disease and Healthy eating Nutrition - 60-Day Assessment Weight Mgt (Other Care) Height: 5 ft 10 in Weight:: 167 lb BMI: 23.9 Core - 30-Day Assessment Visit Date of Eval: 05/13/23 Session #:: 12 Medication Compliance Preventative Medication(s):: Aspirin and Beta clark H/O mental health issues: depression, anxiety, or addiction?: No Doesn?t believe in the benefits of treatment?: No Believes medications are unnecessary or harmful?: No Has a concern about medication side effects?: No Expresses concern over the cost of medications?: No Outcomes/Goals: Verbalizes medications,desired effect & common side effects @ DC, Pt self-reports following medication regimen, Keeps card in wallet w/medications listed by DC and Other additional outcome/goals: Interventions/plans: Instruct on medication effects & side effects, Review medication list w/patient every two weeks, Instruct importance of taking meds as ordered & assist problem solving and Other additional 30-day Reassessments:: Progressing Reassessment Notes & Comments:: pt encouraged to take his meds Tobacco Use Tobacco Use: Non-smoker Hypertension Hypertension Diagnosis:: Hypertension ICD-10 I10 Resting Blood Pressure:: 118/58 [place] [employer] Hypertension Guidelines Peak Exercise Blood Pressure:: 128/78 Outcomes/Goals: Able to verbalize/achieve optimal blood pressure <130/80, Incorporates diet changes & exercise for blood pressure control by DC and Other additional outcomes/goals Interventions/plan: Instruct on optimal blood pressure, hypertension & medications, Instruct on effects of sodium, alcohol, stress, exercise &hypertension and Other additional plan/interventions 30 day Reassessments:: Progressing Reassessment Notes & Comments:: pt encouraged to take his meds Tobacco Cessation Referral Smoking Cessation Referral:: No Individual Education/Counseling:: No Education Schedule Given:: Yes Psychosocial - 30-Day Assess VIsit Date of Eval: 05/13/23 Session #:: 12 History of previous Mental disease:: No Target Goals Target Goals Outcomes/Goals: See list Psychosocial Outcomes/Goals:: ID's personal stressors & 2 strategies to manage stress by discharge and Other Additional outcome/goals: Intervention/Plan: See List Interventions/Plan:: Assess stressors,coping strategies & signs of derpression on admission, Instruct/assist pt to develop coping & personal stress Mgt strategies, Refer to Behavioral Health if appropriate, Refer to Physician if appropriate, Instruct patient to recognize signs & symptoms of depression, Instruct patient to recog and Other additional plan/intervention 30-day Reassessments: 30 day Reassessments:: Met Psychosocial - 60-Day Assess Target Goals Target Goals Outcomes/Goals: See list Psychosocial Outcomes/Goals:: ID's personal stressors & 2 strategies to manage stress by discharge and Other Additional outcome/goals: Psychosocial - 90-Day Assess Target Goals Target Goals Psychosocial - Final Assessmen Target Goals Target Goals Nutrition - 90-Day Assessment Weight Mgt (Other Care) Height: 5 ft 10 in Weight:: 167 lb BMI: 23.9 Nutrition - Final Assessment Weight Mgt (Other Care) Height: 5 ft 10 in Weight:: 167 lb BMI: 23.9
[2023-05-13 09:36] VITALS: BP 118/58; BMI 23.9
== END 2023-05-21 23:59 ==
LOC: CR 10:15
PROVIDERS: PCP Family Medicine
DX: Z98.890 Other specified postprocedural states (principal); I25.10 Atherosclerotic heart disease of native coronary artery without angina pectoris
CPT/HCPCS: 93798

== ENCOUNTER 2023-06-19 10:15 | Outpatient (RCR) | payer MEDICARE, OTHER, SELFPAY ==
[2023-05-13 09:36] VITALS: BMI 23.9
[2023-05-22 00:19] VITALS: BP 118/58
--- NOTE | 2023-06-12 07:26 | CR.ITP_ITS ---
Nutrition - Initial Assessment Weight Mgt (Other Care) Height: 5 ft 10 in Weight:: 169 lb 8 oz BMI: 24.3 Psychosocial - Initial Assess Target Goals Target Goals Patient Health Questionnaire PHQ-9 Screening 60-Day Re-eval Assessment: 1. Little interest or pleasure in doing things: Not at all 2. Feeling down, depressed, or hopeless: Not at all 3. Trouble falling or staying asleep, or sleeping too much: Several days 4. Feeling tired or having little energy: Several days 5. Poor appetite or overeating: Not at all 6. Feeling bad about yourself -- or that you are a failure or have let yourself or your family down: Not at all 7. Trouble concentrating on things, such as reading the newspaper or watching television: Not at all 8. Moving or speaking so slowly that other people could have noticed. Or the opposite - being so fidgety or restless that you have been moving around a lot more than usual: Not at all 9. Thoughts that you would be better off , or of hurting yourself in some way: Not at all How difficult have these problems made it for you to do your work, take care of things at home, or get along with other people?: Not difficult at all Total Score: 2 Self-Efficacy 6-Item Scale 60-Day Re-eval Assessment: We would like to know how confident you are in doing certain activities. Please select your confidence level for: Fatigue Select Number: 8 Physical Discomfort or Pain Select Number: 9 Emotional Distress Select Number: 9 Other Symptoms or Health Problems Select Number: 8 Different Tasks and Activities Select Number: 7 Medication Select Number: 8 Total Score:: 8 Nutrition Survey Nutrition Survey Instructions Scoring Instructions Exercise - 60-day Assessment Visit Date of Eval: 06/12/23 Session #:: 24 Physician Prescribed Exercise Modalities: NuStep Frequency: 3x/week for 12 weeks [36 sessions] Intensity: 60-80% of age predicted maximum heart rate reserve Duration: 30 - 45 minutes Current METSs:: 3 Target Heart Rate:: 84-98 Current RPE:: 11-14 Maximum Excercise HR:: 69 Resting Blood Pressure: 112/58 Maximum Exercise Blood Pressure: 128/70 EKG Type: SB to NSR w/ occas PAC's/atrial bigeminy. Brief run of PAT. Rare PVC. Outcomes & Goals Goals:: Verbalizes understanding of THR, RPE & goal METS by session 6, Documents in home exercise log/reports 30 min aerobic 5 day/wk by DC, Demonstrates ac curate pulse taking by DC and Other additional outcome/goals: see below Intervention & Plan Exercise Program Goals: Instruct on personal THR & RPE, Instruct on MET level & personal MET goal, Show patient to take own pulse /validate performance until accurate, Instruct on home exercise and Other additional plan/int 30-day Reassessments 30 day Reassessments:: Met Physical Activity Home Exercise Physical Activity - Home Exercise: Safe Exercise, Warm-up, Self-monitoring, Cool-Down, Home Exercise > 30 min Daily and Sitting Time <3 hours/daily Outcomes & Goals Outcomes/Goals: Demonstrates correct Warm-up/exercise Cool-Down (S3) if = 2.5 METs, Verbalizes symptoms of exercise intolerance by Session 3 (S3), Demonstrate safe equipment use (S3) & follows exercise prescrition (6) and Other: See below Intervention & Plan Plan/Intervention: Instruct warm-up & cool-down if exercising at > 2 METs, Instruct on symptoms of exercise intolerance & actions to take, Instruct & monitor on saf, Assess intial functional capacity & safety risk and Other See below 30-day Reassessments 30 day Reassessments:: Not Met Nutrition - 30-Day Assessment Weight Mgt (Other Care) Height: 5 ft 10 in Weight:: 169 lb 8 oz BMI: 24.3 Nutrition - 60-Day Assessment Program Goals Nutrition Program Goals Patient has diagnosis of Hyperlipidemia (ICD E78)?: Yes Visit Date of Eval: 06/12/23 Session #:: 24 Cholesterol/Lipids (Other Core Measures) Determine presence & major risk factors that modify LDL goal: Hypertension or hypertensive medication, Low HDL cholesterol <40 mg/dL*, Family history of premature CHD in Male < 55 years: female <65 yearsFa and Age men > 45 years; women >/= 55 years Outcomes/Goals: Pt IDs own risk factors & lifestyle modifications by Session 10, Verbalizes symptoms of angina & response by session 3., Pt independently manages and Other Additional Outcomes/Goals: Intervention/Plan: Advocate for lipid panel cholesterol medication if applicable, Instruct on personal lipid levels & lipid goals/NCEP guidelines, Instruct on cholesterol and Other additional plan/int 30-day Reassessments:: Met Diabetes (Other Core Measures) Diabetes Type: Not Applicable Weight Mgt (Other Care) Height: 5 ft 10 in Weight:: 169 lb 8 oz BMI: 24.3 Diagnosis Overweight/Obesity BMI> 30% ICD-10 E66: No Diagnosis High BMI/Morbid Obesity BMI> 35% ICD-10 Z68: No Outcomes/Goals: Pt sets, maintains & shows weight loss goal & trend during rehab and Other additional outcomes/goals Intervention/Plan: Instruct on ideal BMI & set weight loss goal w/patient, Assist pt to ID & incorporate diet changes for weight loss by S9, Refer to Structured Weight Loss program as appropriate, Encourage goal of using 250- 300dcal per session for weight loss and Other additional plan/interventions 30 day Reassessments:: Met Healthy Eating Habits Will attend diet classes:: Yes Outcomes/Goals:: Consume diet rich in vegs,fruits,whole grain/high fiber,fish,lean meat, Limit sat/trans fats,cholesterol & added salts & sugars and Other additional outcome/goals: Intervention/Plan:: Assess current eating habits and Other Additional plan/interventions 30-day Reassessments:: Met Education Gave educational materials for:: Signs & symptoms of hypoglycemia, Signs & symptoms of hyperglycemia, Relate diabetes to coronary artery disease and Healthy eating Core - 60-Day Assessment Visit Date of Eval: 06/12/23 Session #:: 24 Medication Compliance Preventative Medication(s):: Aspirin and Beta clark H/O mental health issues: depression, anxiety, or addiction?: No Doesn?t believe in the benefits of treatment?: No Believes medications are unnecessary or harmful?: No Has a concern about medication side effects?: No Expresses concern over the cost of medications?: No Outcomes/Goals: Verbalizes medications,desired effect & common side effects @ DC, Pt self-reports following medication regimen, Keeps card in wallet w/medications listed by DC and Other additional outcome/goals: Interventions/plans: Instruct on medication effects & side effects, Review medication list w/patient every two weeks, Instruct importance of taking meds as ordered & assist problem solving and Other additional 30-day Reassessments:: Met Tobacco Use Tobacco Use: Non-smoker Hypertension Hypertension Diagnosis:: Hypertension ICD-10 I10 Resting Blood Pressure:: 112/58 [place] [employer] Hypertension Guidelines Peak Exercise Blood Pressure:: 128/70 Outcomes/Goals: Able to verbalize/achieve optimal blood pressure <130/80, Incorporates diet changes & exercise for blood pressure control by DC and Other additional outcomes/goals Interventions/plan: Instruct on optimal blood pressure, hypertension & medications, Instruct on effects of sodium, alcohol, stress, exercise &hypertension and Other additional plan/interventions 30 day Reassessments:: Met Tobacco Cessation Referral Smoking Cessation Referral:: No Individual Education/Counseling:: No Education Schedule Given:: Yes Psychosocial - 30-Day Assess Target Goals Target Goals Outcomes/Goals: See list Psychosocial Outcomes/Goals:: ID's personal stressors & 2 strategies to manage stress by discharge and Other Additional outcome/goals: Psychosocial - 60-Day Assess VIsit Date of Eval: 06/12/23 Session #:: 24 History of previous Mental disease:: No Target Goals Target Goals Outcomes/Goals: See list Psychosocial Outcomes/Goals:: ID's personal stressors & 2 strategies to manage stress by discharge and Other Additional outcome/goals: Intervention/Plan: See List Interventions/Plan:: Assess stressors,coping strategies & signs of derpression on admission, Instruct/assist pt to develop coping & personal stress Mgt strategies, Refer to Behavioral Health if appropriate, Refer to Physician if appropriate, Instruct patient to recognize signs & symptoms of depression, Instruct patient to recog and Other additional plan/intervention 30-day Reassessments: 30 day Reassessments:: Met Psychosocial - 90-Day Assess Target Goals Target Goals Psychosocial - Final Assessmen Target Goals Target Goals Nutrition - 90-Day Assessment Weight Mgt (Other Care) Height: 5 ft 10 in Weight:: 169 lb 8 oz BMI: 24.3 Nutrition - Final Assessment Weight Mgt (Other Care) Height: 5 ft 10 in Weight:: 169 lb 8 oz BMI: 24.3
[2023-06-12 07:34] VITALS: BP 112/58; BMI 24.3
== END 2023-06-21 23:59 ==
LOC: CR 10:15
PROVIDERS: PCP Family Medicine
DX: Z98.890 Other specified postprocedural states (principal); I25.10 Atherosclerotic heart disease of native coronary artery without angina pectoris
CPT/HCPCS: 93798

== ENCOUNTER 2023-07-08 10:15 | Outpatient (RCR) | payer MEDICARE, OTHER, SELFPAY ==
[2023-06-12 07:34] VITALS: BMI 24.3
[2023-06-22 00:40] VITALS: BP 112/58; BP 118/58
== END 2023-07-21 23:59 ==
LOC: CR 10:15
PROVIDERS: PCP Family Medicine
DX: Z98.890 Other specified postprocedural states (principal); I25.10 Atherosclerotic heart disease of native coronary artery without angina pectoris
CPT/HCPCS: 93798

== ENCOUNTER 2025-01-19 08:00 | Outpatient (RCR) | payer SELFPAY ==
[2023-06-12 07:34] VITALS: BMI 24.3
== END 2025-01-20 23:59 ==
LOC: CR 08:00
PROVIDERS: PCP Family Medicine
DX: Z00.00 Encounter for general adult medical examination without abnormal findings (principal)

== ENCOUNTER 2025-02-14 08:00 | Outpatient (RCR) | payer SELFPAY ==
[2023-06-12 07:34] VITALS: BMI 24.3
== END 2025-02-19 23:59 ==
LOC: CR 08:00
PROVIDERS: PCP Family Medicine
DX: Z00.00 Encounter for general adult medical examination without abnormal findings (principal)

== ENCOUNTER 2025-03-21 08:00 | Outpatient (RCR) | payer SELFPAY ==
[2023-06-12 07:34] VITALS: BMI 24.3
== END 2025-03-22 23:59 ==
LOC: CR 08:00
PROVIDERS: PCP Family Medicine
DX: Z00.00 Encounter for general adult medical examination without abnormal findings (principal)